=== PATIENT | male | born 1985 | race Caucasian/White ===

== ENCOUNTER 2017-02-11 21:52 | Emergency (ER) | payer MEDICAID ==
[~2017-02-11] VITALS: Ht 180.3 cm; Wt 95.3 kg
[~2017-02-11 21:52] MED LIST: /QUET10TA OR; PAXI20TA OR
[2017-02-11 22:20] VITALS: BP 136/97
[2017-02-11] MEDS ORDERED: BUPR150T5 PO (22:29)
[2017-02-11] MEDS ORDERED: BUPR10TASR PO (22:29)
[2017-02-11] MEDS ORDERED: REME15TA PO (22:29)
[2017-02-11] MEDS ORDERED: DULO30CA PO (22:29)
[2017-02-11] MEDS ORDERED: TRAZ50TA4 PO (22:29)
== END 2017-02-11 23:04 | disposition home or self-care (01) ==
LOC: EDBD 21:52 → M ED 23:01
DX: F19.10 Other psychoactive substance abuse, uncomplicated (principal); Z60.9 Problem related to social environment, unspecified; F32.9 Major depressive disorder, single episode, unspecified; F41.9 Anxiety disorder, unspecified; F17.200 Nicotine dependence, unspecified, uncomplicated; Z79.899 Other long term (current) drug therapy; Z88.0 Allergy status to penicillin

== ENCOUNTER → 2017-09-26 | Outpatient (CLI) | payer MEDICAID ==
[2017-09-26 13:32] LABS: HEMATOCRIT 45.5 % (42.0-52.0); HEMOGLOBIN 15.5 g/dl (14.0-18.0); MEAN CORPUSCULAR HEMOGLOBIN 30.1 pg (27.0-33.0); MEAN CORPUSCULAR HGB CONC 34.1 g/dl (32.0-36.5); MEAN CORPUSCULAR VOLUME 88.3 fl (80.0-96.0); PLATELET COUNT, AUTOMATED 330 10^3/uL (150-450); RED BLOOD COUNT 5.15 10^6/uL (4.30-6.10); WHITE BLOOD COUNT 8.7 10^3/uL (4.0-10.0)
[2017-09-26 15:09] LABS: ALBUMIN 4.4 GM/DL (3.2-5.2); ALBUMIN/GLOBULIN RATIO 1.26 (1.00-1.93); ALKALINE PHOSPHATASE 76 U/L (45-117); ALT/SGPT 40 U/L (12-78); ANION GAP 8 MEQ/L (8-16); AST/SGOT 24 U/L (7-37); BILIRUBIN,TOTAL 0.5 MG/DL (0.2-1.0); BLOOD UREA NITROGEN 11 MG/DL (7-18); CALCIUM LEVEL 9.6 MG/DL (8.5-10.1); CARBON DIOXIDE LEVEL 33 MEQ/L (21-32); CHLORIDE LEVEL 98 MEQ/L (98-107); CREATININE FOR GFR 0.88 MG/DL (0.70-1.30); GLOMERULAR FILTRATION RATE > 60.0 (>60); GLUCOSE, FASTING 72 MG/DL (70-105); POTASSIUM SERUM 3.9 MEQ/L (3.5-5.1); SODIUM LEVEL 139 MEQ/L (136-145); TOTAL PROTEIN 7.9 GM/DL (6.4-8.2)
[2017-09-26 15:20] LABS: HEPATITIS B SURFACE ANTIGEN NEGATIVE (NEGATIVE)
[2017-09-26 15:47] LABS: HEPATITIS C VIRUS ABY INDEX 0.1 INDEX (<0.8)
[2017-09-26 15:48] LABS: HIV 1&2 SCREEN CENTAUR NEGATIVE (NEGATIVE)
[2017-09-26 15:54] LABS: CHLAMYDIA DNA AMPLIFICATION NEGATIVE (NEGATIVE); GC DNA AMPLIFICATION NEGATIVE (NEGATIVE)
== END ==
LOC: M LAB 12:03
DX: F11.20 Opioid dependence, uncomplicated (principal)
CPT/HCPCS: 93005

== ENCOUNTER 2017-11-15 21:29 | Inpatient (IN) | payer MEDICAID ==
[2017-11-15] MEDS: HALOPERIDOL 5 MG/ML VIAL (J1630) IM (22:30)
[2017-11-15] MEDS: diphenhydrAMINE INJ 50MG/ML VIAL (J1200) IM (22:30)
[2017-11-15] MEDS: LORazepam 2 MG/ML VIAL (J2060) IM (22:30)
[2017-11-15] MEDS: NS 1,000 ML IV ×2 (22:30→23:41)
[2017-11-15 22:56] LABS: BASO # 0.1 10^3/uL (0.0-0.2); EOS # 0.1 10^3/uL (0.0-0.50); EOS % 0.7 % (0.0-3.0); HEMATOCRIT 44.8 % (42.0-52.0); HEMOGLOBIN 14.8 g/dl (14.0-18.0); IMMATURE GRANULOCYTE % 0.2 % (0-3.0); LYMPH # 1.5 10^3/uL (1.5-4.5); LYMPH % 17.8 % (24.0-44.0); MEAN CORPUSCULAR HEMOGLOBIN 30.6 pg (27.0-33.0); MEAN CORPUSCULAR VOLUME 92.6 fl (80.0-96.0); MONO # 0.5 10^3/uL (0.0-0.8); MONO % 6.1 % (0.0-5.0); NEUTROPHILS # 6.1 10^3/uL (1.8-7.7); NEUTROPHILS % 74.2 % (36.0-66.0); PLATELET COUNT, AUTOMATED 314 10^3/uL (150-450); RED BLOOD COUNT 4.84 10^6/uL (4.30-6.10); RED CELL DISTRIBUTION WIDTH 12.8 % (11.5-14.5); WHITE BLOOD COUNT 8.3 10^3/uL (4.0-10.0)
[2017-11-15 23:17] LABS: AMMONIA 50 uMOL/L (<32)
[2017-11-15 23:19] LABS: OSMOLALITY SERUM 295 MOSM/KG (275-295)
[2017-11-15 23:24] LABS: ALBUMIN 4.6 GM/DL (3.2-5.2); ALBUMIN/GLOBULIN RATIO 1.35 (1.00-1.93); ALKALINE PHOSPHATASE 63 U/L (45-117); ALT/SGPT 34 U/L (12-78); ANION GAP 7 MEQ/L (8-16); AST/SGOT 22 U/L (7-37); BILIRUBIN,DIRECT < 0.1 MG/DL (0.0-0.2); BILIRUBIN,TOTAL 0.2 MG/DL (0.2-1.0); BLOOD UREA NITROGEN 9 MG/DL (7-18); CALCIUM LEVEL 8.8 MG/DL (8.5-10.1); CARBON DIOXIDE LEVEL 28 MEQ/L (21-32); CHLORIDE LEVEL 106 MEQ/L (98-107); CPK CREATINE PHOSPHOKINASE 229 U/L (39-308); CREATININE FOR GFR 1.05 MG/DL (0.70-1.30); GLOMERULAR FILTRATION RATE > 60.0 (>60); GLUCOSE, FASTING 87 MG/DL (70-100); SALICYLATE LEVEL 3.3 MG/DL (5.0-30.0); SODIUM LEVEL 141 MEQ/L (136-145); TROPONIN I < 0.02 NG/ML (< 0.10)
[2017-11-15 23:25] LABS: ACETAMINOPHEN LEVEL < 2.0 UG/ML (10.0-30.0); ETHYL ALCOHOL (ETHANOL) < 0.003 % (0.000-0.010)
[2017-11-15 23:26] LABS: CK-MB VALUE MASS 2.6 NG/ML (0.0-3.6); MB/CK RELATIVE INDEX 1.13 (< OR =4)
[2017-11-15 23:27] LABS: LACTIC ACID SEPSIS PROTOCOL 3.9 MMOL/L (0.4-2.0)
[2017-11-15 23:32] LABS: THYROID STIMULATING HORMONE 0.414 uIU/ML (0.358-3.740)
[2017-11-15] MEDS: LORazepam 2 MG/ML VIAL (J2060) IV (23:45)
[2017-11-16 00:28] LABS: AMPHETAMINES LEVEL URINE NEGATIVE (NEGATIVE); BARBITURATES URINE NEGATIVE (NEGATIVE); BENZODIAZEPINES URINE NEGATIVE (NEGATIVE); CANNABINOIDS URINE NEGATIVE (NEGATIVE); COCAINE METABOLITE URINE NEGATIVE (NEGATIVE); METHADONE URINE NEGATIVE (NEGATIVE); OPIATES URINE NEGATIVE (NEGATIVE); PHENCYCLIDINE URINE NEGATIVE (NEGATIVE)
[2017-11-16 03:35] LABS: INR 1.01; PROTHROMBIN TIME 13.4 SECONDS (12.4-14.5)
[2017-11-16 03:45] LABS: AMMONIA 40 uMOL/L (<32)
[2017-11-16] MEDS ORDERED: LORazepam 2 MG/ML VIAL (J2060) IV (12:45)
[2017-11-16] MEDS: LR 1,000 ML IV ×2 (13:32→23:53)
[2017-11-16 13:36] LABS: TROPONIN I < 0.02 NG/ML (< 0.10)
[2017-11-16 13:47] LABS: CK-MB VALUE MASS 2.5 NG/ML (0.0-3.6); CPK CREATINE PHOSPHOKINASE 1595 U/L (39-308); MB/CK RELATIVE INDEX 0.15 (< OR =4)
[2017-11-16 19:35] LABS: TROPONIN I < 0.02 NG/ML (< 0.10)
[2017-11-16 19:46] LABS: CPK CREATINE PHOSPHOKINASE 1390 U/L (39-308); MB/CK RELATIVE INDEX 0.14 (< OR =4)
[2017-11-16] MEDS: HEPARIN SOD (PORCINE) 5000 UNITS/ML VIAL SC (21:30)
[2017-11-17] MEDS: LR 1,000 ML IV ×3 (06:18→19:24)
[2017-11-17 06:29] LABS: HEMATOCRIT 41.2 % (42.0-52.0); HEMOGLOBIN 13.4 g/dl (14.0-18.0); MEAN CORPUSCULAR HEMOGLOBIN 30.2 pg (27.0-33.0); MEAN CORPUSCULAR HGB CONC 32.5 g/dl (32.0-36.5); PLATELET COUNT, AUTOMATED 250 10^3/uL (150-450); RED BLOOD COUNT 4.43 10^6/uL (4.30-6.10); RED CELL DISTRIBUTION WIDTH 12.9 % (11.5-14.5); WHITE BLOOD COUNT 5.6 10^3/uL (4.0-10.0)
[2017-11-17 06:50] LABS: AMMONIA 25 uMOL/L (<32)
[2017-11-17 06:53] LABS: ALBUMIN 3.3 GM/DL (3.2-5.2); ALBUMIN/GLOBULIN RATIO 1.14 (1.00-1.93); ALKALINE PHOSPHATASE 53 U/L (45-117); ALT/SGPT 26 U/L (12-78); ANION GAP 4 MEQ/L (8-16); AST/SGOT 24 U/L (7-37); BILIRUBIN,TOTAL 0.2 MG/DL (0.2-1.0); BLOOD UREA NITROGEN 9 MG/DL (7-18); CALCIUM LEVEL 8.6 MG/DL (8.5-10.1); CARBON DIOXIDE LEVEL 32 MEQ/L (21-32); CHLORIDE LEVEL 109 MEQ/L (98-107); CREATININE FOR GFR 0.73 MG/DL (0.70-1.30); GLOMERULAR FILTRATION RATE > 60.0 (>60); GLUCOSE, FASTING 96 MG/DL (70-100); MAGNESIUM LEVEL 2.1 MG/DL (1.8-2.4); SODIUM LEVEL 145 MEQ/L (136-145); TOTAL PROTEIN 6.2 GM/DL (6.4-8.2)
[2017-11-17 07:47] LABS: CPK CREATINE PHOSPHOKINASE 995 U/L (39-308)
[2017-11-17] MEDS: HEPARIN SOD (PORCINE) 5000 UNITS/ML VIAL SC ×2 (08:47→20:33)
[2017-11-18] MEDS: LR 1,000 ML IV ×2 (01:47→05:44)
[2017-11-18 07:00] LABS: HEMATOCRIT 40.4 % (42.0-52.0); HEMOGLOBIN 13.3 g/dl (14.0-18.0); MEAN CORPUSCULAR HGB CONC 32.9 g/dl (32.0-36.5); MEAN CORPUSCULAR VOLUME 91.2 fl (80.0-96.0); PLATELET COUNT, AUTOMATED 259 10^3/uL (150-450); RED BLOOD COUNT 4.43 10^6/uL (4.30-6.10); RED CELL DISTRIBUTION WIDTH 12.7 % (11.5-14.5); WHITE BLOOD COUNT 7.1 10^3/uL (4.0-10.0)
[2017-11-18 07:20] LABS: ALBUMIN 3.2 GM/DL (3.2-5.2); ALBUMIN/GLOBULIN RATIO 1.07 (1.00-1.93); ALKALINE PHOSPHATASE 54 U/L (45-117); ALT/SGPT 23 U/L (12-78); ANION GAP 5 MEQ/L (8-16); AST/SGOT 17 U/L (7-37); BILIRUBIN,TOTAL 0.3 MG/DL (0.2-1.0); BLOOD UREA NITROGEN 9 MG/DL (7-18); CALCIUM LEVEL 8.6 MG/DL (8.5-10.1); CARBON DIOXIDE LEVEL 30 MEQ/L (21-32); CHLORIDE LEVEL 107 MEQ/L (98-107); CREATININE FOR GFR 0.69 MG/DL (0.70-1.30); GLOMERULAR FILTRATION RATE > 60.0 (>60); GLUCOSE, FASTING 96 MG/DL (70-100); POTASSIUM SERUM 3.4 MEQ/L (3.5-5.1); SODIUM LEVEL 142 MEQ/L (136-145); TOTAL PROTEIN 6.2 GM/DL (6.4-8.2)
[2017-11-18] MEDS: HEPARIN SOD (PORCINE) 5000 UNITS/ML VIAL SC (08:25)
[2017-11-18] MEDS: POTASSIUM CHLORIDE 10 MEQ SR TABLET PO (08:25)
== END 2017-11-18 13:47 | disposition home or self-care (01) | DRG 351 ==
LOC: M MSPAV 11-17 15:23 → M ED INP 11-16 12:55 → M ED 21:29
DX: M62.82 Rhabdomyolysis (principal); F32.9 Major depressive disorder, single episode, unspecified; E78.2 Mixed hyperlipidemia; F41.9 Anxiety disorder, unspecified; F11.10 Opioid abuse, uncomplicated; R41.82 Altered mental status, unspecified; F17.210 Nicotine dependence, cigarettes, uncomplicated; Z79.899 Other long term (current) drug therapy

== ENCOUNTER 2018-04-18 13:39 | Emergency (ER) | payer MEDICAID ==
[2018-04-18] MEDS: GENTAMICIN 0.3% OPHTH SOL 5 ML BTL OS (14:34)
== END 2018-04-18 14:37 | disposition home or self-care (01) ==
LOC: M ED 13:39
DX: H10.9 Unspecified conjunctivitis (principal); I10 Essential (primary) hypertension; F43.10 Post-traumatic stress disorder, unspecified; F41.9 Anxiety disorder, unspecified; F32.9 Major depressive disorder, single episode, unspecified; Z87.820 Personal history of traumatic brain injury; Z72.0 Tobacco use; Z79.899 Other long term (current) drug therapy; Z88.0 Allergy status to penicillin
CPT/HCPCS: 99282

== ENCOUNTER 2018-05-17 08:46 | Emergency (ER) | payer MEDICAID ==
[2018-05-17] MEDS: IBUPROFEN 600 MG TAB PO (09:43)
[2018-05-17] MEDS: DICYCLOMINE 10 MG CAP PO (09:45)
== END 2018-05-17 09:49 | disposition home or self-care (01) ==
LOC: M ED 08:46
DX: S20.369A Insect bite (nonvenomous) of unspecified front wall of thorax, initial encounter (principal); W57.XXXA Bitten or stung by nonvenomous insect and other nonvenomous arthropods, initial encounter; Y92.89 Other specified places as the place of occurrence of the external cause; R10.9 Unspecified abdominal pain; I10 Essential (primary) hypertension; F41.9 Anxiety disorder, unspecified; F33.9 Major depressive disorder, recurrent, unspecified; F43.10 Post-traumatic stress disorder, unspecified; F17.200 Nicotine dependence, unspecified, uncomplicated; Z88.0 Allergy status to penicillin
CPT/HCPCS: 99282

== ENCOUNTER → 2020-02-25 | Outpatient (REF) | payer OTHER ==
[~2020-02-25] MED LIST changes: -/QUET10TA OR; +ALLE10TA12 PO; +BUPR10TASR PO; +BUPR150T5 PO; +BUPR300T92 PO; +DOXY-350 PO; +DULO30CA9 PO; +FIBE62TA PO; +GENT0.3S36 OD; +HYDR-3715 PO; +KETO10TAB PO; +MELA3TAB63 PO; +NAPR-837 PO; +NEUR300C PO; +PATIENT COMMENT; +REME15TA PO; +SERO1TAB OR; +SUBO12MI SL; +TRAZ-252 PO
== END ==
LOC: M LAB REF 12:24
PROVIDERS: ATTEND Surgery
DX: Z11.59 Encounter for screening for other viral diseases (principal)

== ENCOUNTER 2020-09-18 19:23 | Emergency (ER) | payer OTHER, SELFPAY ==
[~2020-09-18 19:23] MED LIST changes: -MELA3TAB63 PO; +MELA3TAB70 PO; +MIRT-62 PO; -REME15TA PO
[2020-09-18 19:47] VITALS: BP 155/99
== END 2020-09-18 19:55 | disposition left against medical advice (07) ==
LOC: M ED 19:23
DX: Z53.21 Procedure and treatment not carried out due to patient leaving prior to being seen by health care provider (principal)

== ENCOUNTER 2020-09-28 14:58 | Emergency (ER) | payer OTHER ==
[~2020-09-28] VITALS: Ht 180.3 cm; Wt 79.3 kg
[2020-09-28 14:59] VITALS: BP 141/88
[2020-09-28] MEDS ORDERED: IBUP80TA PO (15:09)
[2020-09-28] MEDS ORDERED: GABA-1171 PO (15:09)
[2020-09-28] MEDS ORDERED: CLEO300C2 PO (16:21)
== END 2020-09-28 16:28 | disposition home or self-care (01) ==
LOC: M ED 14:58
DX: I80.8 Phlebitis and thrombophlebitis of other sites (principal); L03.90 Cellulitis, unspecified; W57.XXXA Bitten or stung by nonvenomous insect and other nonvenomous arthropods, initial encounter; F17.200 Nicotine dependence, unspecified, uncomplicated; F11.10 Opioid abuse, uncomplicated; Z88.0 Allergy status to penicillin

== ENCOUNTER 2020-10-16 18:17 | Emergency (ER) | payer OTHER ==
[~2020-10-16] VITALS: Ht 182.9 cm; Wt 76.0 kg
[~2020-10-16 18:17] MED LIST changes: +CLEO300C2 PO; +GABA-1171 PO; +IBUP80TA PO
[2020-10-16] MEDS ORDERED: DOXY100T27 (18:27)
[2020-10-16] MEDS ORDERED: LIDOCAINE 4% CREAM 5GM (LMX4) TOP ONE (19:30)
[2020-10-16] MEDS ORDERED: DOXYCYCLINE HYCLATE 100MG TABLET PO ONE (19:30)
[2020-10-16] MEDS ORDERED: NAPROXEN 250 MG TAB PO ONE (19:30)
--- OUTSIDE RECORDS SUMMARY | 2020-10-16 19:33 | CCD ---
Author Author [facility] Organization [facility] Address Unknown Phone Unavailable Support Name Relationship Address Phone Jeniffer Florez Next Of Kin Unknown Unavailable Navneet RUIZ, Solitario Next Of Kin [address] [place] [address] Osiel RUIZ, Placido Next Of Kin [address] [place] [address] Syd RUIZ, Teri Next Of Kin [address] [place], [place] [id number] [facility] [place] [place] [address] RAISSA FLOREZ Next Of Kin [address] [place] [address] Pedro Luis RPA-C, Irma Next Of Kin [address] [place] [address] Maday SWIMMING POOL SERVICER, Susana Next Of Kin [address] [place] [address] Yvan BATES, Jamel Next Of Kin [address] [place] [address] Eddie ANP-BC, Татьяна Next Of Kin [address] [place] [id number] [facility] Next Of Kin [address] [place] [address] UE Next Of Kin Unknown Unavailable NONE, PATIENT PER Next Of Kin - -, [place] - - JENIFFER [place] [address] UNEMPLOYED Next Of Kin Unknown JOSE FLOREZ Next Of Kin [address] [place], [place] [id number] GEMMA RICHARD Next Of Kin [address] [place] [address] TREMAYNE RICHARD Next Of Kin [address] [place] [address] TREMAYNE RICHARD Next Of Kin [address] [place] [address] NOAH FLOREZ Next Of Kin [address] [place] [address] Care Team Providers Care Mold Closer Name Role Phone Kathleen Patiño MD Unavailable Unavailable Kathleen Patiño MD Unavailable Unavailable Kathleen Patiño MD Unavailable Unavailable Kathleen Patiño MD Unavailable Unavailable Kathleen Patiño MD Unavailable Unavailable Kathleen Patiño MD Unavailable Unavailable Haroon, Kathleen Jerez MD Unavailable Unavailable Kathleen Patiño MD Unavailable Unavailable Haroon, Kathleen Jerez MD Unavailable Unavailable Kathleen Patiño MD Unavailable Unavailable Kathleen Patiño MD Unavailable Unavailable Kathleen Patiño MD Unavailable Unavailable Kathleen Patiño MD Unavailable Unavailable Kathleen Patiño MD Unavailable Unavailable Kathleen Patiño MD Unavailable Unavailable Kathleen Patiño MD Unavailable Unavailable Kathleen Patiño MD Unavailable Unavailable Kathleen Patiño MD Unavailable Unavailable Kathleen Patiño MD Unavailable Unavailable Kathleen Patiño MD Unavailable Unavailable Kathleen Patiño MD Unavailable Unavailable Kathleen Patiño MD Unavailable Unavailable Kathleen Patiño MD Unavailable Unavailable Kathleen Patiño MD Unavailable Unavailable Kathleen Patiño MD Unavailable Unavailable Kathleen Patiño MD Unavailable Unavailable Kathleen Patiño MD Unavailable Unavailable Kathleen Patiño MD Unavailable Unavailable Kathleen Patiño MD Unavailable Unavailable Kathleen Patiño MD Unavailable Unavailable Kathleen Patiño MD Unavailable Unavailable Kathleen Patiño MD Unavailable Unavailable Kathleen Patiño MD Unavailable Unavailable Kathleen Patiño MD Unavailable Unavailable Kathleen Patiño MD Unavailable Unavailable Kathleen Patiño MD Unavailable Unavailable Michelet Cartagena MD Unavailable Unavailable Michelet Cartagena MD Unavailable Unavailable Michelet Cartagena MD Unavailable Unavailable Michelet Cartagena MD Unavailable Unavailable Michelet Cartagena MD Unavailable Unavailable Michelet Cartagena MD Unavailable Unavailable Michelet Cartagena MD Unavailable Unavailable Michelet Cartagena MD Unavailable Unavailable Michelet Cartagena MD Unavailable Unavailable Michelet Cartagena MD Unavailable Unavailable Michelet Cartagena MD Unavailable Unavailable Michelet Cartagena MD Unavailable Unavailable Michelet Cartagena MD Unavailable Unavailable Michelet Cartagena MD Unavailable Unavailable Michelet Cartagena MD Unavailable Unavailable Michelet Cartagena MD Unavailable Unavailable Michelet Cartagena MD Unavailable Unavailable Michelet Cartagena MD Unavailable Unavailable Michelet Cartagena MD Unavailable Unavailable Michelet Cartagena MD Unavailable Unavailable Michelet Cartagena MD Unavailable Unavailable Michelet Cartagena MD Unavailable Unavailable Michelet Cartagena MD Unavailable Unavailable Michelet Cartagena MD Unavailable Unavailable Michelet Cartagena MD Unavailable Unavailable Michelet Cartagena MD Unavailable Unavailable Michelet Cartagena MD Unavailable Unavailable Michelet Cartagena MD Unavailable Unavailable Michelet Cartagena MD Unavailable Unavailable Michelet Cartagena MD Unavailable Unavailable Michelet Cartagena MD Unavailable Unavailable Michelet Cartagena MD Unavailable Unavailable Michelet Cartagena MD Unavailable Unavailable Michelet Cartagena MD Unavailable Unavailable Michelet Cartagena MD Unavailable Unavailable Michelet Cartagena MD Unavailable Unavailable Michelet Cartagena MD Unavailable Unavailable Michelet Cartagena MD Unavailable Unavailable Michelet Cartagena MD Unavailable Unavailable Michelet Cartagena MD Unavailable Unavailable Michelet Cartagena MD Unavailable Unavailable Michelet Cartagena MD Unavailable Unavailable Michelet Cartagena MD Unavailable Unavailable Michelet Cartagena MD Unavailable Unavailable Michelet Cartagena MD Unavailable Unavailable Michelet Cartagena MD Unavailable Unavailable Michelet Cartagena MD Unavailable Unavailable Michelet Cartagena MD Unavailable Unavailable Michelet Cartagena MD Unavailable Unavailable Michelet Cartagena MD Unavailable Unavailable Michelet Cartagena MD Unavailable Unavailable Michelet Cartagena MD Unavailable Unavailable Michelet Cartagena MD Unavailable Unavailable Michelet Cartagena MD Unavailable Unavailable Michelet Cartagena MD Unavailable Unavailable Michelet Cartagena MD Unavailable Unavailable Michelet Cartagena MD Unavailable Unavailable Michelet Cartagena MD Unavailable Unavailable Michelet Cartagena MD Unavailable Unavailable Michelet Cartagena MD Unavailable Unavailable Michelet Cartagena MD Unavailable Unavailable Michelet Cartagena MD Unavailable Unavailable Michelet Cartagena MD Unavailable Unavailable Michelet Cartagena MD Unavailable Unavailable Michelet Cartagena MD Unavailable Unavailable Michelet Cartagena MD Unavailable Unavailable Michelet Cartagena MD Unavailable Unavailable Michelet Cartagena MD Unavailable Unavailable Michelet Cartagena MD Unavailable Unavailable Michelet Cartagena MD Unavailable Unavailable Michelet Cartagena MD Unavailable Unavailable Michelet Cartagena MD Unavailable Unavailable Michelet Cartagena MD Unavailable Unavailable Michelet Cartagena MD Unavailable Unavailable Michelet Cartagena MD Unavailable Unavailable Michelet Cartagena MD Unavailable Unavailable Michelet Cartagena MD Unavailable Unavailable Michelet Cartagena MD Unavailable Unavailable Michelet Cartagena MD Unavailable Unavailable Michelet Cartagena MD Unavailable Unavailable Michelet Cartagena MD Unavailable Unavailable Michelet Cartagena MD Unavailable Unavailable Michelet Cartagena MD Unavailable Unavailable Michelet Cartagena MD Unavailable Unavailable Michelet Cartagena MD Unavailable Unavailable Michelet Cartagena MD Unavailable Unavailable Michelet Cartagena MD Unavailable Unavailable Michelet Cartagena MD Unavailable Unavailable Michelet Cartagena MD Unavailable Unavailable Nicole LOO MD Unavailable Unavailable Nicole LOO MD Unavailable Unavailable Nicole LOO MD Unavailable Unavailable Nicole LOO MD Unavailable Unavailable Nicole LOO MD Unavailable Unavailable Nicole LOO MD Unavailable Unavailable Nicole LOO MD Unavailable Unavailable Nicole LOO MD Unavailable Unavailable Nicole LOO MD Unavailable Unavailable Nicole LOO MD Unavailable Unavailable Nicole LOO MD Unavailable Unavailable Nicole LOO MD Unavailable Unavailable Nicole LOO MD Unavailable Unavailable Nicole LOO MD Unavailable Unavailable Nicole LOO MD Unavailable Unavailable Nicole LOO MD Unavailable Unavailable Nicole LOO MD Unavailable Unavailable Nicole LOO MD Unavailable Unavailable Nicole LOO MD Unavailable Unavailable Nicole LOO MD Unavailable Unavailable Nicole LOO MD Unavailable Unavailable Nicole LOO MD Unavailable Unavailable Nicole LOO MD Unavailable Unavailable Nicole LOO MD Unavailable Unavailable Nicole LOO MD Unavailable Unavailable Nicole LOO MD Unavailable Unavailable Nicole LOO MD Unavailable Unavailable Nicole LOO MD Unavailable Unavailable Nicole LOO MD Unavailable Unavailable Nicole LOO MD Unavailable Unavailable Nicole LOO MD Unavailable Unavailable Nicole LOO MD Unavailable Unavailable Nicole LOO MD Unavailable Unavailable Nicole LOO MD Unavailable Unavailable Nicole LOO MD Unavailable Unavailable Nicole LOO MD Unavailable Unavailable Nicole LOO MD Unavailable Unavailable Nicole LOO MD Unavailable Unavailable Nicole LOO MD Unavailable Unavailable Nicole LOO MD Unavailable Unavailable Nicole LOO MD Unavailable Unavailable Nicole LOO MD Unavailable Unavailable Nicole LOO MD Unavailable Unavailable Nicole LOO MD Unavailable Unavailable Nicole LOO MD Unavailable Unavailable Nicole LOO MD Unavailable Unavailable Nicole LOO MD Unavailable Unavailable Nicole LOO MD Unavailable Unavailable Nicole LOO MD Unavailable Unavailable Nicole LOO MD Unavailable Unavailable Nicole LOO MD Unavailable Unavailable Nicole LOO MD Unavailable Unavailable Nicole LOO MD Unavailable Unavailable Nicole LOO MD Unavailable Unavailable Nicole LOO MD Unavailable Unavailable NAVNEET, Nicole JEREZ MD Unavailable Unavailable NAVNEET, Nicole JEREZ MD Unavailable Unavailable NAVNEET, Nicole JEREZ MD Unavailable Unavailable NAVNEET, T SOLITARIO RUIZ Unavailable Unavailable NAVNEET, T SOLITARIO RUIZ Unavailable Unavailable NAVNEET, T SOLITARIO RUIZ Unavailable Unavailable NAVNEET, Nicole JEREZ MD Unavailable Unavailable NAVNEET, Nicole JEREZ MD Unavailable Unavailable NAVNEET, Nicole JEREZ MD Unavailable Unavailable NAVNEET, Nicole JEREZ MD Unavailable Unavailable NAVNEET, Nicole JEREZ MD Unavailable Unavailable NAVNEET, Nicole JEREZ MD Unavailable Unavailable NAVNEET, T SOLITARIO RUIZ Unavailable Unavailable NAVNEET, T SOLITARIO RUIZ Unavailable Unavailable NAVNEET, T SOLITARIO RUIZ Unavailable Unavailable NAVNEET, T SOLITARIO RUIZ Unavailable Unavailable NAVNEET, T SOLITARIO RUIZ Unavailable Unavailable NAVNEET, T SOLITARIO RUIZ Unavailable Unavailable NAVNEET, T SOLITARIO RUIZ Unavailable Unavailable NAVNEET, T SOLITARIO RUIZ Unavailable Unavailable NAVNEET, T SOLITARIO RUIZ Unavailable Unavailable NAVNEET, T SOLITARIO RUIZ Unavailable Unavailable NAVNEET, Nicole JEREZ MD Unavailable Unavailable NAVNEET, T SOLITARIO RUIZ Unavailable Unavailable NAVNEET, T SOLITARIO RUIZ Unavailable Unavailable NAVNEET, T SOLITARIO RUIZ Unavailable Unavailable NAVNEET, T SOLITARIO RUIZ Unavailable Unavailable NAVNEET, T SOLITARIO RUIZ Unavailable Unavailable Adela Monge Unavailable Re-disclosure Warning The records that you are about to access may contain information from federally-assisted alcohol or drug abuse programs. If such information is present, then the following federally mandated warning applies: This information has been disclosed to you from records protected by federal confidentiality rules (42 CFR part 2). The federal rules prohibit you from making any further disclosure of this information unless further disclosure is expressly permitted by the written consent of the person to whom it pertains or as otherwise permitted by 42 CFR part 2. A general authorization for the release of medical or other information is NOT sufficient for this purpose. The Federal rules restrict any use of the information to criminally investigate or prosecute any alcohol or drug abuse patient.The records that you are about to access may contain highly sensitive health information, the redisclosure of which is protected by Article 27-F of the [facility] Public Health law. If you continue you may have access to information: Regarding HIV / AIDS; Provided by facilities licensed or operated by the [facility] Office of Mental Health; or Provided by the [facility] Office for People With Developmental Disabilities. If such information is present, then the following [facility] mandated warning applies: This information has been disclosed to you from confidential records which are protected by state law. State law prohibits you from making any further disclosure of this information without the specific written consent of the person to whom it pertains, or as otherwise permitted by law. Any unauthorized further disclosure in violation of state law may result in a fine or fdc sentence or both. A general authorization for the release of medical or other information is NOT sufficient authorization for further disc losure. Family History Family Member Name Family Member Gender Family Member Status Date o f Status Description Data Source(s) Unknown Male Problem [facility] ([facility]) Encounters Encounter Providers Location Date Indications Data Source(s ) Outpatient Attender: Placido Cartagena MD 06/02/2020 04:31:01 PM EDT [facility] Outpatient Attender: Placido Cartagena MD 06/02/2020 04:30:00 PM EDT [facility] Outpatient Attender: Placido Cartagena MD 05/08/2020 12:02:07 AM EDT [facility] Outpatient Attender: Placido Cartagena MD 05/07/2020 01:59:00 PM EDT [facility] Outpatient Attender: Placido Cartagena MD 05/04/2020 03:27:00 PM EDT [facility] Outpatient Attender: Placido Cartagena MD 05/04/2020 03:26:01 PM EDT [facility] Outpatient Attender: Placido Cartagena MD 05/04/2020 12:02:11 AM EDT [facility] Outpatient Attender: Placido Cartagena MD 05/03/2020 01:44:01 PM EDT [facility] Outpatient Attender: Placido Cartagena MD 05/03/2020 01:43:02 PM EDT [facility] Outpatient Attender: Placido Cartagena MD 05/03/2020 12:03:00 PM EDT [facility] Outpatient Attender: Placido Cartagena MD 05/03/2020 11:59:00 AM EDT [facility] Outpatient Attender: Placido Cartagena MD 05/03/2020 11:55:00 AM EDT [facility] Outpatient Attender: Placido Cartagena MD 05/03/2020 11:54:01 AM EDT [facility] Outpatient Attender: Placido Cartagena MD 05/03/2020 11:53:01 AM EDT [facility] Outpatient Attender: Placido Cartagena MD 05/03/2020 11:49:01 AM EDT [facility] Outpatient Attender: Placido Cartagena MD 05/03/2020 11:39:01 AM EDT [facility] Outpatient Attender: Placido Cartagena MD 05/03/2020 10:52:00 AM EDT [facility] Outpatient Attender: SOLITARIO LOO MD 05/03/2020 10:50:00 A M EDT [facility] Outpatient Attender: SOLITARIO LOO MD 04/12/2020 11:52:01 A M EDT [facility] Outpatient Attender: SOLITARIO LOO MD 04/12/2020 11:20:01 A M EDT [facility] Outpatient Attender: SOLITARIO LOO MD 04/12/2020 11:14:00 A M EDT [facility] Outpatient Attender: SOLITARIO LOO MD 04/12/2020 10:54:00 A M EDT [facility] Outpatient Attender: Solitario Patiño MD [facility] 03/03 03:44:00 PM EDT [id number] [facility] [id number] Attender: Adela Monge 01/23/2020 12:00:00 AM E DT [facility] ([facility]) Brief Individual Psychotherapy - 20 min Attender: Adela arreola [facility] 01/22/2020 01:30:00 AM EDT - 01/22/2020 01:30:00 AM EDT [facility] ([facility]) Outpatient Attender: SOLITARIO LOO MD 12/23/2019 09:01:02 P M EDT [facility] Attender: Adela Monge 10/27/2019 12:00:[address] [facility] ([facility]) Brief Individual Psychotherapy - 30 min Attender: Adela arreola [facility] 10/23/2019 09:15:00 AM EST - 10/23/2019 09:15:00 AM EST [facility] ([facility]) Medications Medication Brand Name Start Date Product Form Dose Route Admi nistrative Instructions Pharmacy Instructions Status Indications Reaction Description Data Source(s) 100 mg 10/08/2020 12:00:00 AM EST tablet 14 TAKE ONE TABLET BY MOUTH TWICE A DAY FOR 7 DAYS TAKE ONE TABLET BY MOUTH TWICE A DAY FOR 7 DAYS SOLD: 2020 [facility] 300 mg 09/28/2020 12:00:00 AM EST capsule 30 TAKE ONE CAPSULE BY MOUTH THREE TIMES A DAY TAKE ONE CAPSULE BY MOUTH THREE TIMES A DAY SOLD: 10/01/2020 [facility] 100 mg 08/03/2020 12:00:00 AM EST capsule 60 TAKE ONE CAPSULE BY MOUTH TWO TIMES A DAY TAKE ONE CAPSULE BY MOUTH TWO TIMES A DAY SOLD: 08/03/2020 [facility] 0.1 % 06/03/2020 12:00:00 AM EDT cream 15 APPLY TO AFFECTED AREA(S) TWO TIMES A DAY APPLY TO AFFECTED AREA(S) TWO TIMES A DAY SOLD: 08/03/2020 [facility] 50 mcg/actuation 06/03/2020 12:00:00 AM EDT spray,suspension 16 SPRAY 2 SPRAYS INTRANASALLY ONCE DAILY DIRECTED SPRAY 2 SPRAYS INTRANASALLY ONCE DAILY DIRECTED SOLD: 06/06/2020 [facility] 800 mg 06/03/2020 12:00:00 AM EDT tablet 21 TAKE ONE TABLET BY MOUTH THREE TIMES A DAY FOR 7 DAYS TAKE ONE TABLET BY MOUTH THREE TIMES A DAY FOR 7 DAYS SOLD: 06/06/2020 [facility] 0.1 % 06/03/2020 12:00:00 AM EDT cream 15 APPLY TO AFFECTED AREA(S) TWO TIMES A DAY APPLY TO AFFECTED AREA(S) TWO TIMES A DAY SOLD: 06/03/2020 [facility] 10 mg 06/03/2020 12:00:00 AM EDT tablet 30 TAKE ONE TABLET BY MOUTH EVERY DAY TAKE ONE TABLET BY MOUTH EVERY DAY SOLD: 06/03/2020 [facility] 200 mg 06/03/2020 12:00:00 AM EDT capsule 21 TAKE ONE CAPSULE BY MOUTH THREE TIMES A DAY FOR 7 DAYS TAKE ONE CAPSULE BY MOUTH THREE TIMES A DAY FOR 7 DAYS SOLD: 06/03/2020 [facility] 300 mg 06/03/2020 12:00:00 AM EDT capsule 20 TAKE ONE CAPSULE BY MOUTH EVERY 12 HOURS FOR 10 DAYS TAKE ONE CAPSULE BY MOUTH EVERY 12 HOURS FOR 10 DAYS S OLD: 06/03/2020 [facility] 100 mg 05/04/2020 12:00:00 AM EDT capsule 60 TAKE ONE CAPSULE BY MOUTH EVERY DAY FOR 7 DAYS THEN 1 CAPSULE TWO TIMES A DAY TAKE ONE CAPSULE BY MOUTH EVERY DAY FOR 7 DAYS THEN 1 CAPSULE TWO TIMES A DAY SOLD: 05/04/2020 [facility] 100 mg 05/04/2020 12:00:00 AM EDT capsule 60 TAKE ONE CAPSULE BY MOUTH EVERY DAY FOR 7 DAYS THEN 1 CAPSULE TWO TIMES A DAY TAKE ONE CAPSULE BY MOUTH EVERY DAY FOR 7 DAYS THEN 1 CAPSULE TWO TIMES A DAY SOLD: 06/01/2020 [facility] Insurance Providers Payer name Policy type / Coverage type Policy ID Covered democrat ID Covered democrat's relationship to duran Policy Duran Plan Information UN COMMUNITY PLAN MCDHMO [id number] SP [id number] [facility] [employer] MCDHMO [id number] SP [id number] SELF PAY ONLY [id number] SP [id number] YURY RICEIFF DEPT [id number] SP [id number] Medicaid P [id number] S [id number] Managed Care [facility] Community Plan P [id number] S [id number] Medicaid S [id number] S [id number] Managed Care - Community Plan [facility] P [id number] S [id number] UN COMMUNITY PLAN MCDHMO [id number] SP [id number] [facility] COMM[employer]ITY [employer] MCDHMO [id number] SP [id number] [facility] COMMUNITY PLAN MCDHMO [id number] SP [id number] Self Pay P [id number] S [id number] Self Pay P UNAVAILABLE S UNAVAILA BLE MEDICAID [id number] SP [id number] Medicaid P [id number] S [id number] Medicaid [place] [id number] Self [id number] MEDICAID M [id number] S [id number] Medicaid P [id number] S [id number] MEDICAID -PHYSICIAN [id number] MEDICAID - O/P EMERGENCY ROOM [id number] Medicaid P [id number] S [id number] MEDICAID [id number] Lisa [id number] [facility] [id number] SP [id number] Managed Care - Community Plan [facility] P [id number] S [id number] Managed Care - Community Plan [facility] P [id number] S [id number] Managed Care BCBS O [id number] S [id number] Medicaid S [id number] S [id number] Medicaid S UNAVAILABLE S UNAVAILA BLE EXCELLUS BCBS P [id number] C [id number] EXCELLUS BCBS P UNAVAILABLE C UNAV AILABLE [id number] Problems, Conditions, and Diagnoses Code Display Name Description Problem Type Effective Dates Data Source(s) F41.9 Anxiety disorder, unspecified Unspecified Anxiety Diso rder Condition 01/23/2020 12:00:00 AM EDT [facility] ([facility]) F11.20 Opioid dependence, uncomplicated Opioid Use Disorder, Severe Condition 01/23/2020 12:00:00 AM EDT [facility] ([facility]) Surgeries/Procedures Procedure Description Date Indications Data Source(s) Brief Individual Psychotherapy - 20 min 01/23/2020 12:00:00 AM EDT - 01/23/2020 12:00:00 AM EDT [facility] ([facility]) Brief Individual Psychotherapy - 20 min 01/22/2020 12: 00:00 AM EDT [facility] ([facility]) Brief Individual Psychotherapy - 30 min 10/27/2019 12:00:00 AM EST - 10/27/2019 12:00:00 AM EST [facility] ([facility]) Brief Individual Psychotherapy - 30 min 10/23/2019 12: 00:00 AM EST [facility] ([facility]) Results ID Date Data Source [id number] 05/03/2020 11:16:16 AM EDT [facility] Measurements & CalculationsHeight: 71 inches (5 ft. 11 in.) 180.34 cm Weight: 194 pounds 88.18 kg Body Mass Index (BMI): 27.16BMI Interpretation: OverweightBody Surface Area (BSA): 2.08Weight Management Education Done (Nutrition/Physical Activity)Vital SignsTemperature: 97.7FPulse Rate: 85 beats/minuteRespiratory Rate: 16 respirations/minuteBlood Pressure: 109/76 O2 Saturation: 100% Vital Signs performed by: Shanelle Narvaez MA, May 03, 2020 11:22 AMNurses Note pt was just [facility] year Initial Intake Information From: patientRoom #: 13Infectious Disease / Travel ScreeningRecent travel for you or any close contacts? NoHave you had any close contact with anyone diagnosed with or under investigation for COVID-19 (coronavirus)? NoFever? NoRespiratory symptoms: cough, cold, congestion, shortness of breath, difficulty breathing? NoLoss of smell? NoLoss of taste? NoSmoking, Tobacco, Vaping or Smoke Exposure StatusSmoke Status: current every day smokerTobacco Use: YesAdv to Quit: YesDo you vape? NoHealthcare HistorySince your last office visit...Have you been admitted to the hospital? NoHave you been to an emergency room (ER) or urgent care clinic? NoHave you seen another healthcare provider? Yes - [facility]Have you seen a dentist? Yes - [facility] dentalIntake performed by: Shanelle Narvaez MA, May 03, 2020 11:18 AMRate Your HealthIn general, would you say your health is? PoorPain AssessmentAre you currently having any pain which... You would like your provider to address? No Affects your activity level? NoDepression Screening - PHQ-2Over the last two weeks, have you... Had little interest or pleasure in doing things? Not at all Been feeling down, depressed, or hopeless? Not at all PHQ-2 Score: 0Anxiety Screening - SYD-2Over the last two weeks, have you been... Feeling nervous, anxious, or on edge? Not at all Unable to stop or control worrying? Not at all SYD-2 Score: 0PRAPARE Sociodemographic Characteristics Race: White Ethnicity: Not or Preferred Language: EnglishScreening, Brief Intervention, & Referral to Treatment (SBIRT)Pre-Screening Questions How many times have you have 5 or more drinks in a day? 0How many times have you used an illegal drug or used a prescription medication for a non-medical reason? 0Performed by: Shanelle Narvaez MA, May 03, 2020 11:18 AMPatient History Medical History:Anxiety DisorderHypertensionSubstance abusetbiSurgical History:L EYE CONSTRUCTION 2002Family History:FH DiabetesFH HypertensionDiabetes (Father)Social/Personal History:Smoking History:Patient currently smokes every day.Patient has been counseled to quit. Advised to Quit/Tobacco Education: YesChief Complaintannual examHistory of Present Illness (HPI)Has been in [facility] and care home for most of a year and did not receive his medications during that time.Was set to start Mayvret when he was jailed for curfew violation. 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 Has had good relief with gabapentin in the past. He was taken off this when he went to care home. We discuss how this has become a more troublesome medication in the setting of substance use disorder.Meeting with Mehran domínguez for possible restart of the MAT program here.HPI performed by: Placido Cartagena MD, May 03, 2020 11:25 AMTransitions of Care InboundProblem ReviewProblem List was reviewed and/or updated during this visit.Medication Reconciliation & ReviewMedication List was reviewed and/or updated during this visit, including review of any jdlm-hcm-mphykak medications, herbal therapies, and/or supplements.Allergy ReviewAllergy List was reviewed and/or updated during this visit.Adult Preventive CareProvider Calculated and Reviewed all Clinical Protocols for patient today. Screening Tobacco Screening: Smoking Status: current every day smoker (05/03/2020) Tobacco Use: Currently (05/03/2020) Advised to Quit: Yes (05/03/2020)Labs/Meds/Other Counseling-Nutrition and Physical Activity:BMI Interpretation: Overweight (05/03/2020) Counseling: Done (05/03/2020) Physical Activity: Done (05/03/2020)Review of Systems General: Denies chills, dizziness, fatigue, fever. Cardiovascular: Denies chest pain. Respiratory: Denies shortness of breath. Gastrointestinal: Complains of nausea. Denies vomiting, constipation, pain or discomfort, change in bowel habits, abdominal pain. Genitourinary: Denies incomplete emptying. Physical ExamGeneral Appearance: well nourished, well hydrated, no acute distressEyes, External: conjunctivae and lids normal, EOMIRespiratory, Auscultation: clear to auscultation bilaterally; no rales, rhonchi, or wheezesRespiratory, Effort: no intercostal retractions or use of accessory musclesCardiovascular, Auscultation: S1, S2 audible; no murmur, rub, or gallop; RRRAbdomen: soft, non-tender, no masses, bowel sounds normalGait & Station: normalSkin, Inspection: no rashes, lesions, or ulcerationsOrientation: oriented to time, place, and personMood & Affect: no depression, anxiety, or agitationJudgment & Insight: intactCare Management Plan Transitions of CareInboundRate Your HealthIn general, would you say your health is? PoorAssessment & Plan Problems:Assessed:Opioid abuse, in remission (VKL97-R52.11) Assessment: Instructions: Has MAT intake today.Hyperlipidemia, unspecified (UBV31-X84.5) Assessment: Instructions: Check fasting blood tests soon.Migraine headache (ICD-346.90) (GOY41-P14.909) Assessment: Instructions: On gabapentin for possible optic neuritis and shoulder pain.Will refer to neurology for further diagnosis and managemnet.We discuss today the risks of prescribing this in terms of KJ and polypharmacy and he voices understanding.Patient Instructions/Care Plan: Opioid abuse- in remission: Has MAT intake today.Hyperlipidemia- unspecified: Check fasting blood tests soon.Migraine headache: On gabapentin for possible optic neuritis and shoulder pain.Will refer to neurology for further diagnosis and managemnet.We discuss today the risks of prescribing this in terms of KJ and polypharmacy and he voices understanding. Plan developed in collaboration with patient and/or familyMedications:GABAPENTIN 100 MG ORAL CAPSULEWELLBUTRIN XL 300 MG ORAL TABLET EXTENDED RELEASE 24 HOURVITAMIN D3 1000 UNIT ORAL TABLETCLARITIN 10 MG ORAL TABLETIBUPROFEN 600 MG ORAL TABLETMedication Changes:New Prescription:G ABAPENTIN 100 MG ORAL CAPSULE-One po qd for 7 days then one po bid. Qty: 60[Capsule] Refills: 1 Method: ElectronicRemoved:GABAPENTIN 300 MG ORAL CAPSULE-1 po tib prn pain, MAVYRET 100-40 MG ORAL TABLET-Take 3 tablets by mouth every day, DOXYCYCLINE HYCLATE 100 MG ORAL TABLET DELAYED RELEASE-1 po bid, NICODERM CQ 21 MG/24HR TRANSDERMAL PATCH 24 HOUR-One patch once daily., SUBOXONE 8-2 MG SUBLINGUAL FILM-One film once daily. MDD 1. APRIL F11.10 APRIL [id number]:PENICILLIN (Critical)Orders:COMP METABOLIC PANEL [CPT-80592] CBC W/DIFF [CPT-63038] LIPID PANEL [CPT-48634] TSH [CPT-13814] Hepatitis C Viral Load [CPT-81990] HCV Genotype [CPT-33533] HBsAg [CPT-26539] HEPATITIS B SURF ANTIBODY HBSAB [CPT-33167] Adult - Ofc Vst, EST, Level III [CPT-43219] Neurology Consult [CPT-02061] Medications:GABAPENTIN 100 MG ORAL CAPSULE (GABAPENTIN) One po qd for 7 days then one po bid. #60[Capsule] x 1 Route:ORAL Entered and Authorized by: Placido Cartagena MD Method used: Electronically to [facility] (retail) [address] [place] [address] Note to Pharmacy: Route: ORAL; RxID: [id number] signed by Placido Cartagena MD on 05/03/2020 at 11:52 AM Name Value Range Interpretation Code Description Data Lauren rce(s) Supporting Document(s) ID Date Data Source [id number] 03/05/2020 12:19:00 PM EDT [facility] Name: NOAH FLOREZ DIN: [id number] F acility: [facility] : 1985 Physician: Solitario Patiño MD Date of Service: 03/03/20 EXAM: CHEST The lungs, mediastinum and chest wall are unremarkable. cc: Dictation Date/Time: 03/05/20 1102 <Electronically signed by Jatinder Wheat MD> Transcribed Date/Time: 03/05/20 1219 03/05/20 1344 Death [facility] Coder: MARIA C Name Value Range Interpretation Code Description Data Lauren rce(s) Supporting Document(s) ID Date Data Source [id number] 02/25/2020 08:40:00 AM EDT [facility] Name Value Range Interpretation Code Description Data Lauren rce(s) Supporting Document(s) SARS CORONAVIRUS 2 RNA [facility] This lab was ordered by [facility] and reported by [facility]. Procedure Social History Code Duration Value Status Description Data Source(s ) Smoking 01/23/2020 12:00:00 AM EDT Unknown if ever smoked comp leted Unknown if ever smoked [facility] ([facility]) Smoking 10/27/2019 12:00:00 AM EST Unknown if ever smoked comp leted Unknown if ever smoked [facility] ([facility])
[2020-10-16] MEDS ORDERED: ANEC4CRE3 TOP (20:32)
[2020-10-16] MEDS ORDERED: NAPR-837 PO (20:32)
[2020-10-16 20:37] VITALS: BP 155/107
== END 2020-10-16 20:48 | disposition home or self-care (01) ==
LOC: M ED 18:17
DX: R21 Rash and other nonspecific skin eruption (principal); B95.7 Other staphylococcus as the cause of diseases classified elsewhere; R06.02 Shortness of breath; I10 Essential (primary) hypertension; Z87.81 Personal history of (healed) traumatic fracture; Z88.0 Allergy status to penicillin; F19.21 Other psychoactive substance dependence, in remission; F17.210 Nicotine dependence, cigarettes, uncomplicated

== ENCOUNTER 2020-10-28 01:26 | Emergency (ER) | payer OTHER ==
[~2020-10-28] VITALS: Ht 180.3 cm; Wt 78.0 kg
[~2020-10-28 01:26] MED LIST changes: +ANEC4CRE3 TOP; +DOXY100T27
--- OUTSIDE RECORDS SUMMARY | 2020-10-28 01:34 | CCD ---
Author Author [facility] Organization [facility] Address Unknown Phone Unavailable Support Name Relationship Address Phone Jeniffer Florez Next Of Kin Unknown Unavailable Navneet RUIZ, Solitario Next Of Kin [address] [place] [address] Osiel RUIZ, Placido Next Of Kin [address] [place] [address] Syd RUIZ, Teri Next Of Kin [address] [place], [place] [id number] [facility] [place] [address] RAISSA FLOREZ Next Of Kin [address] [place] [address] Pedro Luis RPA-C, Irma Next Of Kin [address] [place] [address] Maday YARD ATTENDANT, Susana Next Of Kin [address] [place] [address] Yvan BATES, Jamel Next Of Kin [address] [place] [address] Eddie ANP-BC, Татьяна Next Of Kin [address] [place] [id number] [facility] Next Of Kin [address] [place] [address] UE Next Of Kin Unknown Unavailable NONE, PATIENT PER Next Of Kin - -, [place] - - JENIFFER [place] [address] UNEMPLOYED Next Of Kin Unknown JOSE FLOREZ Next Of Kin [address] [place], [place] [id number] GEMMA RICHARD Next Of Kin [address] [place] [address] TREMAYNE RICHARD Next Of Kin [address] [place] [address] TREMAYNE RICHARD Next Of Kin [address] [place] [address] NOAH FLOREZ Next Of Kin [address] [place] [address] Care Team Providers 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 If you continue you may have access to information: Regarding HIV / AIDS; Provided by facilities licensed or operated by the [facility] Office of Mental Health; or Provided by the [facility] Office for People With Developmental Disabilities. If such information is present, then the following [facility] mandated warning applies: This information has [...] law may result in a fine or intermediate sentence or both. A general authorization for the release of medical or other information is NOT sufficient authorization for further disc losure. Family History Family Member Name Family Member Gender Family Member Status Date o f Status Description Data Source(s) Unknown Male Problem [facility] ([facility]) Encounters Encounter Providers Location Date Indications Data Source(s ) Outpatient Attender: Placido Cartagena MD 06/02/2020 04:31:01 PM EDT [facility] Outpatient Attender: Placido Cartagena MD 06/02/2020 04:30:00 PM EDT [facility] Outpatient Attender: Placido Cartagena MD 05/08/2020 12:02:07 AM EDT [facility] Outpatient Attender: Placido Cartagena MD 05/07/2020 01:59:00 PM EDT [facility] Outpatient Attender: Placido Cartagena MD 05/04/2020 03:27:00 PM EDT [facility] Outpatient Attender: Placido Cartagena MD 05/04/2020 03:26:01 PM EDT [facility] Outpatient Attender: Placido Cartagena MD 05/04/2020 12:02:11 AM EDT [facility] Outpatient Attender: Placido Cartagena MD 05/03/2020 01:44:01 PM EDT [facility] Outpatient Attender: Placido Cartagena MD 05/03/2020 01:43:02 PM EDT [facility] Outpatient Attender: Placido Cartagena MD 05/03/2020 12:03:00 PM EDT [facility] Outpatient Attender: Placido Cartagena MD 05/03/2020 11:59:00 AM EDT [facility] Outpatient Attender: Placido Cartagena MD 05/03/2020 11:55:00 AM EDT [facility] Outpatient Attender: Placido Cartagena MD 05/03/2020 11:54:01 AM EDT [facility] Outpatient Attender: Placido Cartagena MD 05/03/2020 11:53:01 AM EDT [facility] Outpatient Attender: Placido Cartagena MD 05/03/2020 11:49:01 AM EDT [facility] Outpatient Attender: Placido Cartagena MD 05/03/2020 11:39:01 AM EDT [facility] Outpatient Attender: Placido Cartagena MD 05/03/2020 10:52:00 AM EDT [facility] Outpatient Attender: SOLITARIO LOO MD 05/03/2020 10:50:00 A M EDT [facility] Outpatient Attender: SOLITARIO LOO MD 04/12/2020 11:52:01 A M EDT [facility] Outpatient Attender: SOLITARIO LOO MD 04/12/2020 11:20:01 A M EDT [facility] Outpatient Attender: SOLITARIO LOO MD 04/12/2020 11:14:00 A M EDT [facility] Outpatient Attender: SOLITARIO LOO MD 04/12/2020 10:54:00 A M EDT [facility] Outpatient Attender: Solitario Patiño MD [facility] 03/03 03:44:00 PM EDT [id number] [facility] [id number] Attender: Adela Monge 01/23/2020 12:00:00 AM E DT [facility] ([facility]) Brief Individual Psychotherapy - 20 min Attender: Adela arreola [facility] 01/22/2020 01:30:00 AM EDT - 01/22/2020 01:30:00 AM EDT [facility] ([facility]) Outpatient Attender: SOLITARIO LOO MD 12/23/2019 09:01:02 P M EDT [facility] Attender: Adela Monge 10/27/2019 12:00:[address] [facility] ([facility]) Brief Individual Psychotherapy - 30 min Attender: Adela arreola [facility] 10/23/2019 09:15:00 AM EST - 10/23/2019 09:15:00 AM EST [facility] ([facility]) Medications Medication Brand Name Start Date Product [...] AREA(S) TWO TIMES A DAY SOLD: 06/03/2020 [facility] 10 mg 06/03/2020 12:00:00 AM EDT [...] type / Coverage type Policy ID Covered republican ID Covered republican's relationship to duran Policy Duran Plan Information UN COMMUNITY PLAN MCDHMO [id number] SP [id number] [facility] COMMUNITY PLAN MCDHMO [id number] SP [id number] SELF PAY ONLY [id number] SP [id number] YURY RICEIFF DEPT [id number] SP [id number] Medicaid P [id number] S [id number] Managed Care [facility] Community Plan P [id number] S [id number] Medicaid S [id number] S [id number] Managed Care - Community Plan [facility] P [id number] S [id number] UN COMMUNITY PLAN MCDHMO [id number] SP [id number] [facility] COMMUNITY PLAN MCDHMO [id number] SP [id number] [facility] COMMUNITY PLAN MCDHMO [id number] SP [id number] Self Pay P [id number] S [id number] Self Pay P UNAVAILABLE S UNAVAILA BLE MEDICAID [id number] SP [id number] Medicaid P [id number] S [id number] Medicaid [place] [id number] Self [id number] MEDICAID M [id number] S [id number] Medicaid P [id number] S [id number] MEDICAID -PHYSICIAN [id number] 1 [id number] MEDICAID - O/P EMERGENCY ROOM [id number] Medicaid P [id number] S [id number] MEDICAID [id number] Lisa [id number] [facility] [id number] SP [id number] Managed Care - Community Plan [facility] P [id number] S [id number] Managed Care - Community Plan [facility] P [id number] S [id number] Managed Care BCBS O [id number] S [id number] Medicaid S [id number] S [id number] Medicaid S UNAVAILABLE S UNAVAILA BLE EXCELLUS BCBS P [id number] C [id number] EXCELLUS BCBS P UNAVAILABLE C UNAV AILABLE [id number] Problems, Conditions, and Diagnoses Code Display Name Description Problem Type Effective Dates Data Source(s) F41.9 Anxiety disorder, unspecified Unspecified Anxiety Diso rder Condition 01/23/2020 12:00:00 AM EDT [facility] ([facility]) F11.20 Opioid dependence, uncomplicated Opioid Use Disorder, Severe Condition 01/23/2020 12:00:00 AM EDT [facility] ([facility]) Surgeries/Procedures Procedure Description Date Indications Data Source(s) Brief Individual Psychotherapy - 20 min 01/23/2020 12:00:00 AM EDT - 01/23/2020 12:00:00 AM EDT [facility] ([facility]) Brief Individual Psychotherapy - 20 min 01/22/2020 12: 00:00 AM EDT [facility] ([facility]) Brief Individual Psychotherapy - 30 min 10/27/2019 12:00:00 AM EST - 10/27/2019 12:00:00 AM EST [facility] ([facility]) Brief Individual Psychotherapy - 30 min 10/23/2019 12: 00:00 AM EST [facility] ([facility]) Results ID Date Data Source [id number] 05/03/2020 11:16:16 AM EDT [facility] Measurements & CalculationsHeight: 71 inches (5 ft. 11 in.) 180.34 cm Weight: 194 pounds 88.18 kg Body Mass Index (BMI): 27.16BMI Interpretation: OverweightBody Surface Area (BSA): 2.08Weight Management Education Done (Nutrition/Physical Activity)Vital SignsTemperature: 97.7FPulse Rate: 85 beats/minuteRespiratory Rate: 16 respirations/minuteBlood Pressure: 109/76 O2 Saturation: 100% Vital Signs performed by: Shanelle Narvaez MA, May 03, 2020 11:22 AMNurses Note pt was just released from intermediate 04/08 after being there for a year [...] examHistory of Present Illness (HPI)Has been in intermediate and intermediate for most of a year and did [...] taken off this when he went to intermediate. We discuss how this has become a more troublesome medication in the setting of substance use disorder.Meeting with Mehran doímnguez for possible restart of the MAT program here.HPI performed by: Placido Cartagena MD, May 03, 2020 11:25 AMTransitions of Care InboundProblem ReviewProblem List was reviewed and/or updated during this visit.Medication Reconciliation & ReviewMedication List was reviewed and/or updated during this visit, including review of any svsb-klp-jsgonuq medications, herbal therapies, and/or supplements.Allergy ReviewAllergy List [...] PoorAssessment & Plan Problems:Assessed:Opioid abuse, in remission (NCE50-G49.11) Assessment: Instructions: Has MAT intake today.Hyperlipidemia, unspecified (XMP60-B67.5) Assessment: Instructions: Check fasting blood tests soon.Migraine headache (ICD-346.90) (CGS48-T71.909) Assessment: Instructions: On gabapentin for possible optic [...] once daily. MDD 1. APRIL F11.10 APRIL [id number]:PENICILLIN (Critical)Orders:COMP METABOLIC PANEL [CPT-92986] CBC W/DIFF [CPT-77942] LIPID PANEL [CPT-67158] TSH [CPT-23578] Hepatitis C Viral Load [CPT-89958] HCV Genotype [CPT-66339] HBsAg [CPT-37220] HEPATITIS B SURF ANTIBODY HBSAB [CPT-95095] Adult - Ofc Vst, EST, Level III [CPT-54175] Neurology Consult [CPT-49421] Medications:GABAPENTIN 100 MG ORAL CAPSULE (GABAPENTIN) One po qd for 7 days then one po bid. #60[Capsule] x 1 Route:ORAL Entered and Authorized by: Placido Cartagena MD Method used: Electronically to [facility] (retail) [address] [place] [address] Note to Pharmacy: Route: ORAL; RxID: [id number] signed by Placido Cartagena MD on 05/03/2020 at 11:52 AM Name Value Range Interpretation Code Description Data Lauren rce(s) Supporting Document(s) ID Date Data Source [id number] 03/05/2020 12:19:00 PM EDT [facility] Name: NOAH FLOREZ DIN: [id number] F acility: [facility] : 1985 Physician: Solitario Patiño MD Date of Service: 03/03/20 EXAM: CHEST The lungs, mediastinum and chest wall are unremarkable. cc: Dictation Date/Time: 03/05/20 1102 <Electronically signed by Jatinder Wheat MD> Transcribed Date/Time: 03/05/20 1219 03/05/20 1344 [employer] Supervisor: MARIA C Name Value Range Interpretation Code Description Data Lauren rce(s) Supporting Document(s) ID Date Data Source [id number] 02/25/2020 08:40:00 AM EDT [facility] Name Value Range Interpretation Code Description Data Lauren rce(s) Supporting Document(s) SARS CORONAVIRUS 2 RNA [facility] This lab was ordered by [facility] and reported by [facility]. Procedure Social History Code Duration Value Status Description Data Source(s ) Smoking 01/23/2020 12:00:00 AM EDT Unknown if ever smoked comp leted Unknown if ever smoked [facility] ([facility]) Smoking 10/27/2019 12:00:00 AM EST Unknown if ever smoked comp leted Unknown if ever smoked [facility] ([facility])
--- OUTSIDE RECORDS SUMMARY | 2020-10-28 03:26 | CCD ---
Author Author [facility] Organization [facility] Address Unknown Phone Unavailable Support Name Relationship Address Phone Jeniffer Florez Next Of Kin Unknown Unavailable Navneet RUIZ, Solitario Next Of Kin [address] [place] [address] Osiel RUIZ, Placido Next Of Kin [address] [place] [address] Syd RUIZ, Teri Next Of Kin [address] [place], [place] [id number] [facility] [place] [address] RAISSA FLOREZ Next Of Kin [address] [place] [address] Pedro Luis RPA-C, Irma Next Of Kin [address] [place] [address] Maday DEBEAKER, Susana Next Of Kin [address] [place] [address] Yvan BATES, Jamel Next Of Kin [address] [place] [address] Eddie ANP-BC, Татьяна Next Of Kin [address] [place] [address] [facility] Next Of Kin [address] [place] [address] UE Next Of Kin Unknown Unavailable NONE, PATIENT PER Next Of Kin - -, [place] - - JENIFFER FLOREZ [place] [address] UNEMPLOYED Next Of Kin Unknown JOSE FLOREZ Next Of Kin [address] [place], [place] [id number] GEMMA RICHARD Next Of Kin [address] [place] [address] TREMAYNE RICHARD Next Of Kin [address] [place] [address] TREMAYNE RICHARD Next Of Kin [address] [place] [address] NOAH FLOREZ Next Of Kin [address] [place] [address] Care Team Providers Care Mica Spreader Name Role Phone Kathleen Patiño MD Unavailable [...] is protected by Article 27-F of the [facility] Public Health law. If you continue you may have access to information: Regarding HIV / AIDS; Provided by facilities licensed or operated by the [facility] Office of Mental Health; or Provided by the [facility] Office for People With Developmental Disabilities. If such information is present, then the following [facility] mandated warning applies: This information has [...] law may result in a fine or penitentiary sentence or both. A general authorization for [...] Placido Cartagena MD 06/02/2020 04:31:01 PM EDT [facility] Outpatient Attender: Placido Cartagena MD 06/02/2020 04:30:00 PM EDT [facility] Outpatient Attender: Placido Cartagena MD 05/08/2020 12:02:07 AM EDT [facility] Outpatient Attender: Placido Cartagena MD 05/07/2020 01:59:00 PM EDT [facility] Outpatient Attender: Placido Cartagena MD 05/04/2020 03:27:00 PM EDT [facility] Outpatient Attender: Placido Cartagena MD 05/04/2020 03:26:01 PM EDT [facility] Outpatient Attender: Placido Cartagena MD 05/04/2020 12:02:11 AM EDT [facility] Outpatient Attender: Placido Cartagena MD 05/03/2020 01:44:01 PM EDT [facility] Outpatient Attender: Placido Cartagena MD 05/03/2020 01:43:02 PM EDT [facility] Outpatient Attender: Placido Cartagena MD 05/03/2020 12:03:00 PM EDT [facility] Outpatient Attender: Placido Cartagena MD 05/03/2020 11:59:00 AM EDT [facility] Outpatient Attender: Placido Cartagena MD 05/03/2020 11:55:00 AM EDT [facility] Outpatient Attender: Placido Cartagena MD 05/03/2020 11:54:01 AM EDT [facility] Outpatient Attender: Placido Cartagena MD 05/03/2020 11:53:01 AM EDT [facility] Outpatient Attender: Placido Cartagena MD 05/03/2020 11:49:01 AM EDT [facility] Outpatient Attender: Placido Cartagena MD 05/03/2020 11:39:01 AM EDT [facility] Outpatient Attender: Placido Cartagena MD 05/03/2020 10:52:00 AM EDT [facility] Outpatient Attender: SOLITARIO LOO MD 05/03/2020 10:50:00 A M EDT [facility] Outpatient Attender: SOLITARIO LOO MD 04/12/2020 11:52:01 A M EDT [facility] Outpatient Attender: SOLITARIO LOO MD 04/12/2020 11:20:01 A M EDT [facility] Outpatient Attender: SOLITARIO LOO MD 04/12/2020 11:14:00 A M EDT [facility] Outpatient Attender: SOLITARIO LOO MD 04/12/2020 10:54:00 A M EDT [facility] Outpatient Attender: Solitario Patiño MD [facility] 03/03 03:44:[id number] [facility] [id number] Attender: Adela Monge 01/23/2020 12:00:00 AM E DT [facility] ([facility]) Brief Individual Psychotherapy - 20 min Attender: Adela arreola [facility] 01/22/2020 01:30:00 AM EDT - 01/22/2020 01:30:00 AM EDT [facility] ([facility]) Outpatient Attender: SOLITARIO LOO MD 12/23/2019 09:01:02 P M EDT [facility] Attender: Adela Monge 10/27/2019 12:00:[address] [facility] ([facility]) Brief Individual Psychotherapy - 30 min Attender: Adela arreola [facility] 10/23/2019 09:15:00 AM EST - 10/23/2019 09:15:00 AM EST [facility] ([facility]) Medications Medication Brand Name Start Date Product [...] Duran Plan Information UN COMMUNITY PLAN MCDHMO [id number] SP [id number] [facility] COMMUNITY PLAN MCDHMO [id number] SP [id number] SELF PAY ONLY [id number] SP [id number] YURY RICEIFF DEPT [id number] SP [id number] Medicaid P [id number] S [id number] Managed Care [facility] Community Plan P [id number] S [id number] Medicaid S [id number] S [id number] Managed Care - Community Plan [facility] P [id number] S [id number] UN COMMUNITY PLAN MCDHMO [id number] SP [id number] [facility] COMMUNITY PLAN MCDHMO [id number] SP [id number] [facility] COMMUNITY PLAN MCDHMO [id number] SP [id number] Self Pay P [id number] S [id number] Self Pay P UNAVAILABLE S UNAVAILA BLE MEDICAID [id number] SP [id number] Medicaid P [id number] S [id number] Medicaid [place] Medicaid [id number] Self [id number] MEDICAID M [id number] S [id number] Medicaid P [id number] S [id number] MEDICAID -PHYSICIAN [id number] 1 [id number] MEDICAID - O/P EMERGENCY ROOM [id number] 18 [id number] Medicaid P [id number] S [id number] MEDICAID [id number] Lisa [id number] [facility] [id number] SP [id number] Managed Care - Community Plan [facility] P [id number] S [id number] Managed Care - Community Plan [facility] P [id number] S [id number] Managed Care BCBS O [id number] S [id number] Medicaid S [id number] S [id number] Medicaid S UNAVAILABLE S UNAVAILA BLE EXCELLUS BCBS P [id number] C [id number] [id number] EXCELLUS BCBS P UNAVAILABLE C UNAV AILABLE [id number] Problems, Conditions, and Diagnoses Code Display Name Description Problem Type Effective Dates Data Source(s) F41.9 Anxiety disorder, unspecified Unspecified Anxiety Diso rder Condition 01/23/2020 12:00:00 AM EDT [facility] ([facility]) F11.20 Opioid dependence, uncomplicated Opioid Use Disorder, Severe Condition 01/23/2020 12:00:00 AM EDT [facility] ([facility]) Surgeries/Procedures Procedure Description Date Indications Data Source(s) Brief Individual Psychotherapy - 20 min 01/23/2020 12:00:00 AM EDT - 01/23/2020 12:00:00 AM EDT [facility] ([facility]) Brief Individual Psychotherapy - 20 min 01/22/2020 12: 00:00 AM EDT [facility] ([facility]) Brief Individual Psychotherapy - 30 min 10/27/2019 12:00:00 AM EST - 10/27/2019 12:00:00 AM EST [facility] ([facility]) Brief Individual Psychotherapy - 30 min 10/23/2019 12: 00:00 AM EST [facility] ([facility]) Results ID Date Data Source [id number] 05/03/2020 11:16:16 AM EDT [facility] Measurements & CalculationsHeight: 71 inches [...] AMNurses Note pt was just released from penitentiary 04/08 after being there for a year [...] examHistory of Present Illness (HPI)Has been in penitentiary and correction for most of a year and did [...] taken off this when he went to correction. We discuss how this has become a [...] during this visit, including review of any tymy-lmy-xwdmebp medications, herbal therapies, and/or supplements.Allergy ReviewAllergy List [...] PoorAssessment & Plan Problems:Assessed:Opioid abuse, in remission (TVL84-S06.11) Assessment: Instructions: Has MAT intake today.Hyperlipidemia, unspecified (RLE77-S06.5) Assessment: Instructions: Check fasting blood tests soon.Migraine headache (ICD-346.90) (TJG50-N23.909) Assessment: Instructions: On gabapentin for possible optic [...] once daily. MDD 1. APRIL F11.10 APRIL [id number]:PENICILLIN (Critical)Orders:COMP METABOLIC PANEL [CPT-63933] CBC W/DIFF [CPT-78131] LIPID PANEL [CPT-10825] TSH [CPT-87250] Hepatitis C Viral Load [CPT-41968] HCV Genotype [CPT-83076] HBsAg [CPT-19043] HEPATITIS B SURF ANTIBODY HBSAB [CPT-02434] Adult - Ofc Vst, EST, Level III [CPT-73824] Neurology Consult [CPT-30179] Medications:GABAPENTIN 100 MG ORAL CAPSULE (GABAPENTIN) One po qd for 7 days then one po bid. #60[Capsule] x 1 Route:ORAL Entered and Authorized by: Placido Cartagena MD Method used: Electronically to [facility] (retail) [address] [place] [address] Note to Pharmacy: Route: ORAL; RxID: [id number] signed by Placido Cartagena MD on 05/03/2020 at 11:52 AM Name Value Range Interpretation Code Description Data Lauren rce(s) Supporting Document(s) ID Date Data Source [id number] 03/05/2020 12:19:00 PM EDT [facility] Name: NOAH FLOREZ DIN: [id number] F acility: [facility] : 1985 Physician: Solitario Patiño MD Date of Service: 03/03/20 EXAM: CHEST The lungs, mediastinum and chest wall are unremarkable. cc: Dictation Date/Time: 03/05/20 1102 <Electronically signed by Jatinder Wheat MD> Transcribed Date/Time: 03/05/20 1219 03/05/20 1344 [employer] Hand Solderer: MARIA C Name Value Range Interpretation Code Description Data Lauren rce(s) Supporting Document(s) ID Date Data Source [id number] 02/25/2020 08:40:00 AM EDT [facility] Name Value Range Interpretation Code Description Data Lauren rce(s) Supporting Document(s) SARS CORONAVIRUS 2 RNA [facility] This lab was ordered by [facility] and reported by [facility]. Procedure Social History Code Duration Value Status Description Data Source(s ) Smoking 01/23/2020 12:00:00 AM EDT Unknown if ever smoked comp leted Unknown if ever smoked [facility] ([facility]) Smoking 10/27/2019 12:00:00 AM EST Unknown if ever smoked comp leted Unknown if ever smoked [facility] ([facility])
[2020-10-28] MEDS ORDERED: PRED20TA PO (04:28)
[2020-10-28] MEDS ORDERED: ALBUTEROL 90 MCG/ACT 8GM HFA INHALER INH ONE (04:30)
[2020-10-28] MEDS ORDERED: predniSONE 20 MG TAB PO ONE (04:30)
[2020-10-28 04:46] VITALS: BP 127/61
== END 2020-10-28 04:47 | disposition home or self-care (01) ==
LOC: M ED 01:26
DX: J20.9 Acute bronchitis, unspecified (principal); B34.9 Viral infection, unspecified; J02.9 Acute pharyngitis, unspecified; F19.10 Other psychoactive substance abuse, uncomplicated

== ENCOUNTER 2020-10-31 13:45 | Emergency (ER) | payer OTHER ==
[~2020-10-31] VITALS: Ht 182.9 cm; Wt 77.8 kg
[~2020-10-31 13:45] MED LIST changes: +PRED20TA PO
--- OUTSIDE RECORDS SUMMARY | 2020-10-31 13:54 | CCD ---
Author Author [facility] Organization [facility] Address Unknown Phone Unavailable Support Name Relationship Address Phone Jeniffer Florez Next Of Kin Unknown Unavailable Navneet RUIZ, Solitario Next Of Kin [address] [place] [address] Osiel RUIZ, Placido Next Of Kin [address] [place] [address] Syd RUIZ, Teri Next Of Kin [address] [place], [place] [id number] [facility] [place] [address] RAISSA FLOREZ Next Of Kin [address] [place] [address] Pedro Luis RPA-C, Irma Next Of Kin [address] [place] [address] Maday [employer], Susana Next Of Kin [address] [place] [address] Yvan BATES, Jamel Next Of Kin [address] [place] [address] Eddie ANP-BC, Татьяна Next Of Kin [address] [place] [id number] [facility] Next Of Kin [address] [place] [address] UE Next Of Kin Unknown Unavailable NONE, PATIENT PER Next Of Kin - -, [place] - - JENIFFER [place] [address] UNEMPLOYED Next Of Kin Unknown OJSE FLOREZ Next Of Kin [address] [place], [place] [id number] GEMMA RICHARD Next Of Kin [address] [place] [address] TREMAYNE RICHARD Next Of Kin [address] [place] [address] TREMAYNE RICHARD Next Of Kin [address] [place] [address] NOAH FLOREZ Next Of Kin [address] [place] [address] Care Team Providers Care Hydrographic Engineer Name Role Phone Kathleen Patiño MD Unavailable [...] protected by Article 27-F of the [facility] Public Health law. If you continue you may have access to information: Regarding HIV / AIDS; Provided by facilities licensed or operated by the [facility] Office of Mental Health; or Provided by the [facility] Office for People With Developmental Disabilities. If such information is present, then the following [facility] mandated warning applies: This information has [...] law may result in a fine or skilled nursing sentence or both. A general authorization for the release of medical or other information is NOT sufficient authorization for further disc losure. Family History Family Member Name Family Member Gender Family Member Status Date o f Status Description Data Source(s) Unknown Male Problem [facility] ([facility]) Encounters Encounter Providers Location Date Indications Data Source(s ) Outpatient Attender: Placido Cartagena MD 06/02/2020 04:31:01 PM EDT [facility] Outpatient Attender: Placido Cartagena MD 06/02/2020 04:30:00 PM EDT [facility] Outpatient Attender: Placido Cartagena MD 05/08/2020 12:02:07 AM EDT [facility] Outpatient Attender: Placido Cartagena MD 05/07/2020 01:59:00 PM EDT [facility] Outpatient Attender: Placido Cartagena MD 05/04/2020 03:27:00 PM EDT [facility] Outpatient Attender: Placido Cartagena MD 05/04/2020 03:26:01 PM EDT [facility] Outpatient Attender: Placido Cartagena MD 05/04/2020 12:02:11 AM EDT [facility] Outpatient Attender: Placido Cartagena MD 05/03/2020 01:44:01 PM EDT [facility] Outpatient Attender: Placido Cartagena MD 05/03/2020 01:43:02 PM EDT [facility] Outpatient Attender: Placido Cartagena MD 05/03/2020 12:03:00 PM EDT [facility] Outpatient Attender: Placido Cartagena MD 05/03/2020 11:59:00 AM EDT [facility] Outpatient Attender: Placido Cartagena MD 05/03/2020 11:55:00 AM EDT [facility] Outpatient Attender: Placido Cartagena MD 05/03/2020 11:54:01 AM EDT [facility] Outpatient Attender: Placido Cartagena MD 05/03/2020 11:53:01 AM EDT [facility] Outpatient Attender: Placido Cartagena MD 05/03/2020 11:49:01 AM EDT [facility] Outpatient Attender: Placido Cartagena MD 05/03/2020 11:39:01 AM EDT [facility] Outpatient Attender: Placido Cartagena MD 05/03/2020 10:52:00 AM EDT [facility] Outpatient Attender: SOLITARIO LOO MD 05/03/2020 10:50:00 A M EDT [facility] Outpatient Attender: SOLITARIO LOO MD 04/12/2020 11:52:01 A M EDT [facility] Outpatient Attender: SOLITARIO LOO MD 04/12/2020 11:20:01 A M EDT [facility] Outpatient Attender: SOLITARIO LOO MD 04/12/2020 11:14:00 A M EDT [facility] Outpatient Attender: SOLITARIO LOO MD 04/12/2020 10:54:00 A M EDT [facility] Outpatient Attender: Solitario Patiño MD [facility] 03/03 03:44:00 PM EDT [id number] [facility] [id number] Attender: Adela Monge 01/23/2020 12:00:00 AM E DT [facility] ([facility]) Brief Individual Psychotherapy - 20 min Attender: Adela arreola [facility] 01/22/2020 01:30:00 AM EDT - 01/22/2020 01:30:00 AM EDT [facility] ([facility]) Outpatient Attender: SOLITARIO LOO MD 12/23/2019 09:01:02 P M EDT [facility] Attender: Adela Monge 10/27/2019 12:00:[address] [facility] ([facility]) Brief Individual Psychotherapy - 30 min Attender: Adela arreola [facility] 10/23/2019 09:15:00 AM EST - 10/23/2019 09:15:00 AM EST [facility] ([facility]) Medications Medication Brand Name Start Date Product [...] type / Coverage type Policy ID Covered green party ID Covered green party's relationship to duran Policy Duran Plan Information UN COMMUNITY PLAN MCDHMO [id number] SP [id number] COMMUNITY HEALTH COMMUNITY PLAN MCDHMO [id number] SP [id number] SELF PAY ONLY [id number] SP [id number] YURY RICEIFF DEPT [id number] SP [id number] Medicaid P [id number] S [id number] Managed Care [facility] Community Plan P [id number] S [id number] Medicaid S [id number] S [id number] Managed Care - Community Plan [facility] P [id number] S [id number] UN COMMUNITY PLAN MCDHMO [id number] SP [id number] COMMUNITY HEALTH COMMUNITY PLAN MCDHMO [id number] SP [id number] COMMUNITY HEALTH COMMUNITY PLAN MCDHMO [id number] SP [id number] Self Pay P [id number] S [id number] Self Pay P UNAVAILABLE S UNAVAILA BLE MEDICAID [id number] SP [id number] Medicaid P [id number] S [id number] Medicaid [place] [id number] Self [id number] MEDICAID M [id number] S [id number] Medicaid P [id number] S [id number] MEDICAID -PHYSICIAN [id number] 1 [id number] MEDICAID - O/P EMERGENCY ROOM [id number] Medicaid P [id number] S [id number] MEDICAID [id number] Lisa [id number] [facility] [id number] SP [id number] Managed Care - Community Plan [facility] P [id number] S [id number] Managed Care - Community Plan [facility] P [id number] S [id number] Managed Care BCBS O [id number] S [id number] Medicaid S [id number] S [id number] Medicaid S UNAVAILABLE S UNAVAILA BLE EXCELLUS BCBS P [id number] C [id number] [id number] EXCELLUS BCBS P UNAVAILABLE C UNAV AILABLE [id number] Problems, Conditions, and Diagnoses Code Display Name Description Problem Type Effective Dates Data Source(s) F41.9 Anxiety disorder, unspecified Unspecified Anxiety Diso rder Condition 01/23/2020 12:00:00 AM EDT [facility] ([facility]) F11.20 Opioid dependence, uncomplicated Opioid Use Disorder, Severe Condition 01/23/2020 12:00:00 AM EDT [facility] ([facility]) Surgeries/Procedures Procedure Description Date Indications Data Source(s) Brief Individual Psychotherapy - 20 min 01/23/2020 12:00:00 AM EDT - 01/23/2020 12:00:00 AM EDT [facility] ([facility]) Brief Individual Psychotherapy - 20 min 01/22/2020 12: 00:00 AM EDT [facility] ([facility]) Brief Individual Psychotherapy - 30 min 10/27/2019 12:00:00 AM EST - 10/27/2019 12:00:00 AM EST [facility] ([facility]) Brief Individual Psychotherapy - 30 min 10/23/2019 12: 00:00 AM EST [facility] ([facility]) Results ID Date Data Source [id number] 10/28/2020 03:59:00 AM EST [facility] Name Value Range Interpretation Code Description Data Lauren rce(s) Supporting Document(s) SARS COVID ANTIGEN NEGATIVE [facility] This lab was ordered by SHASHA [facility] nd reported by [facility]. ID Date Data Source [id number] 05/03/2020 11:16:16 AM EDT [facility] Measurements & CalculationsHeight: 71 inches (5 [...] AMNurses Note pt was just released from skilled nursing 04/08 after being there for a year [...] Medical History:Anxiety DisorderHypertensionSubstance abusetbiSurgical History:L EYE CONSTRUCTION 2001Family History:FH DiabetesFH HypertensionDiabetes (Father)Social/Personal History:Smoking History:Patient currently smokes every day.Patient has been counseled to quit. Advised to Quit/Tobacco Education: YesChief Complaintannual examHistory of Present Illness (HPI)Has been in skilled nursing and detention for most of a year and did [...] taken off this when he went to detention. We discuss how this has become a [...] during this visit, including review of any bhgl-pvz-pphjqla medications, herbal therapies, and/or supplements.Allergy ReviewAllergy List [...] PoorAssessment & Plan Problems:Assessed:Opioid abuse, in remission (QQH91-Y15.11) Assessment: Instructions: Has MAT intake today.Hyperlipidemia, unspecified (MVO41-N25.5) Assessment: Instructions: Check fasting blood tests soon.Migraine headache (ICD-346.90) (SFB80-I63.909) Assessment: Instructions: On gabapentin for possible optic [...] once daily. MDD 1. APRIL F11.10 APRIL [id number]:PENICILLIN (Critical)Orders:COMP METABOLIC PANEL [CPT-93520] CBC W/DIFF [CPT-50525] LIPID PANEL [CPT-47600] TSH [CPT-82870] Hepatitis C Viral Load [CPT-63276] HCV Genotype [CPT-47085] HBsAg [CPT-93038] HEPATITIS B SURF ANTIBODY HBSAB [CPT-63569] Adult - Ofc Vst, EST, Level III [CPT-96737] Neurology Consult [CPT-99534] Medications:GABAPENTIN 100 MG ORAL CAPSULE (GABAPENTIN) One po qd for 7 days then one po bid. #60[Capsule] x 1 Route:ORAL Entered and Authorized by: Placido Cartagena MD Method used: Electronically to [facility] (retail) [address] [place] [address] Note to Pharmacy: Route: ORAL; RxID: [id number] signed by Placido Cartagena MD on 05/03/2020 at 11:52 AM Name Value Range Interpretation Code Description Data Lauren rce(s) Supporting Document(s) ID Date Data Source [id number] 03/05/2020 12:19:00 PM EDT [facility] Name: NOAH FLOREZ DIN: [id number] F acility: [facility] : 1985 Physician: Solitario Patiño MD Date of Service: 03/03/20 EXAM: CHEST The lungs, mediastinum and chest wall are unremarkable. cc: Dictation Date/Time: 03/05/20 1102 <Electronically signed by Jatinder Wheat MD> Transcribed Date/Time: 03/05/20 1219 03/05/20 1344 Clothes Designer: MARIA C Name Value Range Interpretation Code Description Data Lauren rce(s) Supporting Document(s) ID Date Data Source [id number] 02/25/2020 08:40:00 AM EDT [facility] Name Value Range Interpretation Code Description Data Lauren rce(s) Supporting Document(s) SARS CORONAVIRUS 2 RNA [facility] This lab was ordered by [facility] and reported by [facility]. Procedure Social History Code Duration Value Status Description Data Source(s ) Smoking 01/23/2020 12:00:00 AM EDT Unknown if ever smoked comp leted Unknown if ever smoked [facility] ([facility]) Smoking 10/27/2019 12:00:00 AM EST Unknown if ever smoked comp leted Unknown if ever smoked [facility] ([facility])
[2020-10-31 15:14] LABS: BASO # 0.1 10^3/uL (0.0-0.2); BASO % 0.9 % (0.0-1.0); EOS # 0.1 10^3/uL (0.0-0.5); EOS % 1.1 % (0.0-3.0); HEMATOCRIT 44.7 % (42.0-52.0); HEMOGLOBIN 14.5 g/dl (13.5-17.5); LYMPH # 1.7 10^3/uL (1.5-5.0); LYMPH % 18.4 % (24.0-44.0); MEAN CORPUSCULAR HEMOGLOBIN 29.8 pg (27.0-33.0); MEAN CORPUSCULAR HGB CONC 32.4 g/dl (32.0-36.5); MEAN CORPUSCULAR VOLUME 91.8 fl (80.0-96.0); MONO # 0.7 10^3/uL (0.0-0.8); MONO % 7.8 % (2.0-8.0); NEUTROPHILS # 6.8 10^3/uL (1.5-8.5); NEUTROPHILS % 71.4 % (36.0-66.0); PLATELET COUNT, AUTOMATED 284 10^3/uL (150-450); RED BLOOD COUNT 4.87 10^6/uL (4.30-6.10); WHITE BLOOD COUNT 9.5 10^3/uL (4.0-10.0)
--- OUTSIDE RECORDS SUMMARY | 2020-10-31 15:32 | CCD ---
Author Author [facility] Organization [facility] Address Unknown Phone Unavailable Support Name Relationship Address Phone Jeniffer Florez Next Of Kin Unknown Unavailable Navneet RUIZ, Solitario Next Of Kin [address] [place] [address] Osiel RUIZ, Placido Next Of Kin [address] [place] [address] Syd RUIZ, Teri Next Of Kin [address], [place] [id number] [facility] [place] [address] RAISSA FLOREZ Next Of Kin [address] [place] [address] Pedro Luis RPA-C, Irma Next Of Kin [address] [place] [address] Maday PIGSKIN TRIMMER, Susana Next Of Kin [address] [place] [address] Yvan BATES, Jamel Next Of Kin [address] [place] [address] Eddie ANP-BC, Татьяна Next Of Kin [address] [place] [id number] [facility] Next Of Kin [address] [place] [address] UE Next Of Kin Unknown Unavailable NONE, PATIENT PER Next Of Kin - -, [place] - - JENIFFER FLOREZ [place] [address] UNEMPLOYED Next Of Kin Unknown JOSE FLOREZ Next Of Kin [address] [place], [place] [id number] GEMMA RICHARD Next Of Kin [address] [place] [address] TREMAYNE RICHARD Next Of Kin [address] [place] [address] TREMAYNE RICHARD Next Of Kin [address] [place] [address] NOAH FLOREZ Next Of Kin [address] [place] [address] Care Team Providers Care Education Department Chair Name Role Phone Kathleen Patiño MD Unavailable [...] Unavailable Michelet Cartagena MD Unavailable Unavailable Michelet Caratgena MD Unavailable Unavailable Michelet Cartagena MD Unavailable [...] Unavailable Michelet Cartagena MD Unavailable Unavailable Michelet Cartagean MD Unavailable Unavailable Michelet Cartagena MD Unavailable [...] Unavailable Nicole LOO MD Unavailable Unavailable Nicole OLO MD Unavailable Unavailable Nicole LOO MD Unavailable [...] is protected by Article 27-F of the [facility] Public Health law. If you continue you may have access to information: Regarding HIV / AIDS; Provided by facilities licensed or operated by the [facility] Office of Mental Health; or Provided by the [facility] Office for People With Developmental Disabilities. If such information is present, then the following [facility] mandated warning applies: This information has [...] law may result in a fine or long term sentence or both. A general authorization for the release of medical or other information is NOT sufficient authorization for further disc losure. Family History Family Member Name Family Member Gender Family Member Status Date o f Status Description Data Source(s) Unknown Male Problem [facility] ([facility]) Encounters Encounter Providers Location Date Indications Data Source(s ) Outpatient Attender: Placido Cartagena MD 06/02/2020 04:31:01 PM EDT [facility] Outpatient Attender: lPacido Cartagena MD 06/02/2020 04:30:00 PM EDT [facility] Outpatient Attender: Placido Cartagena MD 05/08/2020 12:02:07 AM EDT [facility] Outpatient Attender: Placido Cartagena MD 05/07/2020 01:59:00 PM EDT [facility] Outpatient Attender: Placido Cartagena MD 05/04/2020 03:27:00 PM EDT [facility] Outpatient Attender: Placido Cartagena MD 05/04/2020 03:26:01 PM EDT [facility] Outpatient Attender: Placido Cartagena MD 05/04/2020 12:02:11 AM EDT [facility] Outpatient Attender: Placido Cartagena MD 05/03/2020 01:44:01 PM EDT [facility] Outpatient Attender: Placido Cartagena MD 05/03/2020 01:43:02 PM EDT [facility] Outpatient Attender: Placido Cartagena MD 05/03/2020 12:03:00 PM EDT [facility] Outpatient Attender: Placido Cartagena MD 05/03/2020 11:59:00 AM EDT [facility] Outpatient Attender: Placido Cartagena MD 05/03/2020 11:55:00 AM EDT [facility] Outpatient Attender: Placido Cartagena MD 05/03/2020 11:54:01 AM EDT [facility] Outpatient Attender: Placido Cartagena MD 05/03/2020 11:53:01 AM EDT [facility] Outpatient Attender: Placido Cartagena MD 05/03/2020 11:49:01 AM EDT [facility] Outpatient Attender: Placido Cartagena MD 05/03/2020 11:39:01 AM EDT [facility] Outpatient Attender: Placido Cartagena MD 05/03/2020 10:52:00 AM EDT [facility] Outpatient Attender: SOLITARIO LOO MD 05/03/2020 10:50:00 A M EDT [facility] Outpatient Attender: SOLITARIO LOO MD 04/12/2020 11:52:01 A M EDT [facility] Outpatient Attender: SOLITARIO LOO MD 04/12/2020 11:20:01 A M EDT [facility] Outpatient Attender: SOLITARIO LOO MD 04/12/2020 11:14:00 A M EDT [facility] Outpatient Attender: SOLITARIO LOO MD 04/12/2020 10:54:00 A M EDT [facility] Outpatient Attender: Solitario Patiño MD [facility] 03/03 03:44:00 PM EDT [id number] [facility] [id number] Attender: Adela Monge 01/23/2020 12:00:00 AM E DT [facility] ([facility]) Brief Individual Psychotherapy - 20 min Attender: Adela arreola [facility] 01/22/2020 01:30:00 AM EDT - 01/22/2020 01:30:00 AM EDT [facility] ([facility]) Outpatient Attender: SOLITARIO LOO MD 12/23/2019 09:01:02 P M EDT [facility] Attender: Adela Monge 10/27/2019 12:00:[address] [facility] ([facility]) Brief Individual Psychotherapy - 30 min Attender: Adela arreola [facility] 10/23/2019 09:15:00 AM EST - 10/23/2019 09:15:00 AM EST [facility] ([facility]) Medications Medication Brand Name Start [...] type / Coverage type Policy ID Covered alliance party ID Covered alliance party's relationship to duran Policy Duran Plan Information UN COMMUNITY PLAN MCDHMO [id number] SP [id number] [facility] COMMUNITY PLAN MCDHMO [id number] SP [id number] SELF PAY ONLY [id number] SP [id number] YURY RICEIFF DEPT [id number] SP [id number] Medicaid P [id number] S [id number] Managed Care [facility] Community Plan P [id number] S [id number] Medicaid S [id number] S [id number] Managed Care - Community Plan [facility] P [id number] S [id number] UN COMMUNITY PLAN MCDHMO [id number] SP [id number] [facility] COMMUNITY PLAN MCDHMO [id number] SP [id number] [facility] COMMUNITY PLAN MCDHMO [id number] SP [id number] Self Pay P [id number] S [id number] Self Pay P UNAVAILABLE S UNAVAILA BLE MEDICAID [id number] SP [id number] Medicaid P [id number] S [id number] Medicaid [place] [id number] Self [id number] MEDICAID M [id number] S [id number] Medicaid P [id number] S [id number] MEDICAID -PHYSICIAN [id number] MEDICAID - O/P EMERGENCY ROOM [id number] Medicaid P [id number] S [id number] MEDICAID [id number] Lisa [id number] [facility] [id number] SP [id number] Managed Care - Community Plan [facility] P [id number] S [id number] Managed Care - Community Plan [facility] P [id number] S [id number] Managed Care BCBS O [id number] S [id number] Medicaid S [id number] S [id number] Medicaid S UNAVAILABLE S UNAVAILA BLE EXCELLUS BCBS P [id number] C [id number] EXCELLUS BCBS P UNAVAILABLE C UNAV AILABLE [id number] Problems, Conditions, and Diagnoses Code Display Name Description Problem Type Effective Dates Data Source(s) F41.9 Anxiety disorder, unspecified Unspecified Anxiety Diso rder Condition 01/23/2020 12:00:00 AM EDT [facility] ([facility]) F11.20 Opioid dependence, uncomplicated Opioid Use Disorder, Severe Condition 01/23/2020 12:00:00 AM EDT [facility] ([facility]) Surgeries/Procedures Procedure Description Date Indications Data Source(s) Brief Individual Psychotherapy - 20 min 01/23/2020 12:00:00 AM EDT - 01/23/2020 12:00:00 AM EDT [facility] ([facility]) Brief Individual Psychotherapy - 20 min 01/22/2020 12: 00:00 AM EDT [facility] ([facility]) Brief Individual Psychotherapy - 30 min 10/27/2019 12:00:00 AM EST - 10/27/2019 12:00:00 AM EST [facility] ([facility]) Brief Individual Psychotherapy - 30 min 10/23/2019 12: 00:00 AM EST [facility] ([facility]) Results ID Date Data Source [id number] 10/28/2020 03:59:00 AM EST [facility] Name Value Range Interpretation Code Description Data Lauren rce(s) Supporting Document(s) SARS COVID ANTIGEN NEGATIVE [facility] This lab was ordered by SHASHA mcgraw nd reported by [facility]. ID Date Data Source [id number] 05/03/2020 11:16:16 AM EDT [facility] Measurements & CalculationsHeight: 71 inches [...] AMNurses Note pt was just released from long term 04/08 after being there for a year [...] examHistory of Present Illness (HPI)Has been in long term and snf for most of a year and did [...] taken off this when he went to snf. We discuss how this has become a [...] during this visit, including review of any xpod-lso-fbfuwwz medications, herbal therapies, and/or supplements.Allergy ReviewAllergy List [...] PoorAssessment & Plan Problems:Assessed:Opioid abuse, in remission (FQV73-D73.11) Assessment: Instructions: Has MAT intake today.Hyperlipidemia, unspecified (CHF36-U62.5) Assessment: Instructions: Check fasting blood tests soon.Migraine headache (ICD-346.90) (URW93-E98.909) Assessment: Instructions: On gabapentin for possible optic [...] once daily. MDD 1. APRIL F11.10 APRIL [id number]:PENICILLIN (Critical)Orders:COMP METABOLIC PANEL [CPT-45649] CBC W/DIFF [CPT-94970] LIPID PANEL [CPT-40599] TSH [CPT-92109] Hepatitis C Viral Load [CPT-53923] HCV Genotype [CPT-81424] HBsAg [CPT-98589] HEPATITIS B SURF ANTIBODY HBSAB [CPT-41356] Adult - Ofc Vst, EST, Level III [CPT-85943] Neurology Consult [CPT-58126] Medications:GABAPENTIN 100 MG ORAL CAPSULE (GABAPENTIN) One po qd for 7 days then one po bid. #60[Capsule] x 1 Route:ORAL Entered and Authorized by: Placido Cartagena MD Method used: Electronically to [facility] (retail) [address] [place] [address] Note to Pharmacy: Route: ORAL; RxID: [id number] signed by Placido Cartagena MD on 05/03/2020 at 11:52 AM Name Value Range Interpretation Code Description Data Lauren rce(s) Supporting Document(s) ID Date Data Source [id number] 03/05/2020 12:19:00 PM EDT [facility] Name: NOAH FLOREZ DIN: [id number] F acility: [facility] : 1985 Physician: Solitario Patiño MD Date of Service: 03/03/20 EXAM: CHEST The lungs, mediastinum and chest wall are unremarkable. cc: Dictation Date/Time: 03/05/20 1102 <Electronically signed by Jatinder Wheat MD> Transcribed Date/Time: 03/05/20 1219 03/05/20 1344 [employer]: MARIA C Name Value Range Interpretation Code Description Data Lauren rce(s) Supporting Document(s) ID Date Data Source [id number] 02/25/2020 08:40:00 AM EDT [facility] Name Value Range Interpretation Code Description Data Lauren rce(s) Supporting Document(s) SARS CORONAVIRUS 2 RNA [facility] This lab was ordered by [facility] and reported by [facility]. Procedure Social History Code Duration Value Status Description Data Source(s ) Smoking 01/23/2020 12:00:00 AM EDT Unknown if ever smoked comp leted Unknown if ever smoked [facility] ([facility]) Smoking 10/27/2019 12:00:00 AM EST Unknown if ever smoked comp leted Unknown if ever smoked [facility] ([facility])
[2020-10-31 15:40] LABS: BLOOD UREA NITROGEN 8 MG/DL (7-18); CALCIUM LEVEL 9.6 MG/DL (8.5-10.1); CARBON DIOXIDE LEVEL 32 MEQ/L (21-32); CHLORIDE LEVEL 104 MEQ/L (98-107); CREATININE FOR GFR 0.79 MG/DL (0.70-1.30); GLOMERULAR FILTRATION RATE > 60.0 (>60); GLUCOSE, FASTING 110 MG/DL (70-100); POTASSIUM SERUM 3.9 MEQ/L (3.5-5.1); SODIUM LEVEL 142 MEQ/L (136-145)
[2020-10-31 15:43] LABS: AMPHETAMINES LEVEL URINE NEGATIVE (NEGATIVE); BARBITURATES URINE NEGATIVE (NEGATIVE); BENZODIAZEPINES URINE NEGATIVE (NEGATIVE); CANNABINOIDS URINE POSITIVE (NEGATIVE); COCAINE METABOLITE URINE NEGATIVE (NEGATIVE); METHADONE URINE NEGATIVE (NEGATIVE); OPIATES URINE POSITIVE (NEGATIVE); PHENCYCLIDINE URINE NEGATIVE (NEGATIVE)
[2020-10-31 16:32] VITALS: BP 138/78
== END 2020-10-31 16:34 | disposition home or self-care (01) ==
LOC: M ED 13:45
DX: F19.10 Other psychoactive substance abuse, uncomplicated (principal); L98.1 Factitial dermatitis; F41.9 Anxiety disorder, unspecified; F32.9 Major depressive disorder, single episode, unspecified; Z88.0 Allergy status to penicillin

== ENCOUNTER 2020-11-21 20:42 | Emergency (ER) | payer OTHER ==
[~2020-11-21] VITALS: Ht 180.3 cm; Wt 74.0 kg
[2020-11-21] MEDS ORDERED: ASPIRIN 81 MG CHEW TABLET PO ONE (21:05)
[2020-11-21] MEDS ORDERED: NITROGLYCERIN 0.4 MG SUBL TABLET SL PRN (21:05)
[2020-11-21 21:43] LABS: BASO # 0.1 10^3/uL (0.0-0.2); BASO % 0.9 % (0.0-1.0); EOS # 0.1 10^3/uL (0.0-0.5); EOS % 1.5 % (0.0-3.0); HEMATOCRIT 41.5 % (42.0-52.0); HEMOGLOBIN 13.4 g/dl (13.5-17.5); LYMPH # 1.7 10^3/uL (1.5-5.0); LYMPH % 25.7 % (24.0-44.0); MEAN CORPUSCULAR HEMOGLOBIN 29.5 pg (27.0-33.0); MEAN CORPUSCULAR HGB CONC 32.3 g/dl (32.0-36.5); MEAN CORPUSCULAR VOLUME 91.4 fl (80.0-96.0); MONO # 0.7 10^3/uL (0.0-0.8); MONO % 9.7 % (2.0-8.0); NEUTROPHILS # 4.1 10^3/uL (1.5-8.5); NEUTROPHILS % 61.9 % (36.0-66.0); PLATELET COUNT, AUTOMATED 238 10^3/uL (150-450); RED BLOOD COUNT 4.54 10^6/uL (4.30-6.10); WHITE BLOOD COUNT 6.7 10^3/uL (4.0-10.0)
[2020-11-21 21:57] LABS: INR 1.03; PROTHROMBIN TIME 13.7 SECONDS (12.5-14.3)
[2020-11-21 21:58] LABS: PARTIAL THROMBOPLASTIN TIME 38.5 SECONDS (24.2-38.5)
[2020-11-21 22:00] LABS: D-DIMER QUANT 1034.17 ng/ml (<500)
[2020-11-21 22:11] VITALS: BP 107/56
[2020-11-21 22:17] LABS: ALBUMIN 3.8 GM/DL (3.2-5.2); ALT/SGPT 32 U/L (12-78); BILIRUBIN,DIRECT < 0.1 MG/DL (0.0-0.2); BILIRUBIN,TOTAL 0.2 MG/DL (0.2-1.0); BLOOD UREA NITROGEN 10 MG/DL (7-18); CARBON DIOXIDE LEVEL 29 MEQ/L (21-32); CHLORIDE LEVEL 104 MEQ/L (98-107); CK-MB VALUE MASS 2.4 NG/ML (<3.6); CPK CREATINE PHOSPHOKINASE 116 U/L (39-308); CREATININE FOR GFR 0.77 MG/DL (0.70-1.30); FREE T4 2.18 NG/DL (0.76-1.46); GLOMERULAR FILTRATION RATE > 60.0 (>60); GLUCOSE, FASTING 101 MG/DL (70-100); LIPASE 111 U/L (73-393); MB/CK RELATIVE INDEX 2.07 (< OR =4); NT-PRO BNP 37 PG/ML (<125); POTASSIUM SERUM 4.1 MEQ/L (3.5-5.1); SODIUM LEVEL 138 MEQ/L (136-145); TOTAL PROTEIN 8.1 GM/DL (6.4-8.2); TROPONIN I < 0.02 NG/ML (< 0.10)
--- NOTE | 2020-11-21 22:18 | REPVR ---
PROCEDURE INFORMATION: Exam: XR Chest Exam date and time: 11/21/2020 10:00 PM Age: 35 years old Clinical indication: Chest pain; Type not specified TECHNIQUE: Imaging protocol: XR of the chest Views: 1 view. COMPARISON: No relevant prior studies available. FINDINGS: Lungs: Unremarkable. No consolidation. Pleural spaces: Unremarkable. No pleural effusion. No pneumothorax. Heart/Mediastinum: Unremarkable. No cardiomegaly. Bones/joints: Unremarkable. IMPRESSION: Negative chest. Electronically signed by: José Salmon On 11/21/2020 22:18:34 PM
[2020-11-21 22:35] VITALS: O2SAT 97
[2020-11-21] MEDS ORDERED: ISOVUE-370 76% 100ML VIAL As Ordered ONE (23:49)
[2020-11-22] MEDS ORDERED: ISOVUE-370 76% 100ML VIAL As Ordered ONE (03:25)
[2020-11-22 03:52] LABS: CK-MB VALUE MASS 3.6 NG/ML (<3.6); CPK CREATINE PHOSPHOKINASE 466 U/L (39-308); MB/CK RELATIVE INDEX 0.77 (< OR =4); TROPONIN I < 0.02 NG/ML (< 0.10)
[2020-11-22 04:10] LABS: RSV AMPLIFICATION NEGATIVE (NEGATIVE)
--- NOTE | 2020-11-22 05:01 | REPVR ---
PROCEDURE INFORMATION: Exam: CT Angiography Chest With Contrast Exam date and time: 11/22/2020 4:32 AM Age: 35 years old Clinical indication: Chest pain; Additional info: Chest pain SOB TECHNIQUE: Imaging protocol: Computed tomographic angiography of the chest with contrast. 3D rendering (Not supervised by radiologist): MIP and/or 3D reconstructed images were created by the technologist. Radiation optimization: All CT scans at this facility use at least one of these dose optimization techniques: automated exposure control; mA and/or kV adjustment per patient size (includes targeted exams where dose is matched to clinical indication); or iterative reconstruction. Contrast material: ISO 370; Contrast volume: 75 ml; Contrast route: INTRAVENOUS (IV); COMPARISON: CR PORTABLE CHEST X-RAY 11/21/2020 9:48 PM FINDINGS: Pulmonary arteries: The main pulmonary artery measures 19 mm. No central pulmonary embolism is identified. Aorta: The ascending thoracic aorta measures 26 mm. Other arteries: The left vertebral artery originates directly from the arch. Lungs: Motion artifact in the lungs with some image degradation. No focal infiltrates. Pleural spaces: Unremarkable. No pneumothorax. No pleural effusion. Heart: Unremarkable. No cardiomegaly. No pericardial effusion. Lymph nodes: Unremarkable. No enlarged lymph nodes. Bones/joints: Unremarkable. No acute fracture. Soft tissues: Unremarkable. IMPRESSION: Essentially negative CTA chest. There is motion artifact in the lungs with some image degradation. No central pulmonary embolism is identified, however. Electronically signed by: José Salmon On 11/22/2020 05:02:00 AM
[2020-11-22] MEDS ORDERED: HYDR-3363 PO (05:47)
[2020-11-22] MEDS ORDERED: hydrOXYzine 25 MG TAB PO ONE (05:50)
[2020-11-22 06:15] VITALS: BP 120/68
--- NOTE | 2020-11-22 07:28 | ECGEPIP ---
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
--- NOTE | 2020-11-22 07:36 | ECGEPIP ---
[facility] - ED Test Date: 2020-11-22 Pat Name: NOAH FLOREZ Department: Room: - Gender: Male Critical Care Rn: YOVANI LATHAMB: 1985 Requested By: DAJA Ramos Order Number: [id number] Reading MD: James Reyes Measurements Intervals [place] Rate: 103 P: 74 CT: 112 QRS: 76 QRSD: 84 T: 58 QT: 332 QTc: 434 Interpretive Statements Sinus tachycardia SIMILAR TO 11/21/20 Electronically Signed on 11-22-2020 7:35:39 EST by James Reyes
== END 2020-11-22 06:22 | disposition home or self-care (01) ==
LOC: M ED 20:42
DX: F41.0 Panic disorder [episodic paroxysmal anxiety] (principal); I10 Essential (primary) hypertension; E78.5 Hyperlipidemia, unspecified; F33.9 Major depressive disorder, recurrent, unspecified; F43.10 Post-traumatic stress disorder, unspecified; F15.10 Other stimulant abuse, uncomplicated; Z88.0 Allergy status to penicillin; Z79.899 Other long term (current) drug therapy
CPT/HCPCS: 36415; 71045; 71275; 80048; 80076; 82550; 82553; 83690; 83880; 84439; 84443; 85025; 85379; 85610; 85730; 87631; 87804; 93005; 93041; 94760; 99285; Q9967

== ENCOUNTER 2024-03-27 15:46 | Emergency (ER) | payer OTHER, SELFPAY ==
[~2024-03-27] VITALS: Ht 180.3 cm; Wt 79.8 kg
[~2024-03-27 15:46] MED LIST changes: +BUPR-597 PO; +BUPR-71 PO; -BUPR150T5 PO; -BUPR300T92 PO; -DOXY-350 PO; +DOXY-440 PO; +HYDR-3363 PO; -MIRT-62 PO; +MIRT-88 PO
[2024-03-27 15:48] VITALS: TEMP 98.8
[2024-03-27 16:48] LABS: RSV AMPLIFICATION NEGATIVE (NEGATIVE)
[2024-03-27 18:12] VITALS: BP 128/77; O2SAT 99
[2024-03-27 19:27] LABS: ALKALINE PHOSPHATASE 56 U/L (46-116); ALT/SGPT 89 U/L (7.0-40); AST/SGOT 69 U/L (<34); BILIRUBIN,DIRECT 0.4 MG/DL (<0.4); BILIRUBIN,TOTAL 0.7 MG/DL (0.3-1.2); BLOOD UREA NITROGEN 10 MG/DL (9-23); CARBON DIOXIDE LEVEL 27 MMOL/L (20-31); CHLORIDE LEVEL 101 MMOL/L (98-107); CK-MB VALUE MASS 4.3 NG/ML (<3.6); CPK CREATINE PHOSPHOKINASE 208 U/L (46-171); CREATININE FOR GFR 0.58 MG/DL (0.70-1.30); GLOMERULAR FILTRATION RATE > 60.0 (>60); GLUCOSE, FASTING 86 MG/DL (60-100); MB/CK RELATIVE INDEX 2.06 (< OR =4); POTASSIUM SERUM 3.6 MMOL/L (3.5-5.1); SODIUM LEVEL 137 MMOL/L (136-145); THYROXINE (T4) 12.5 UG/DL (4.5-10.9); TOTAL PROTEIN 8.3 G/DL (5.7-8.2)
[2024-03-27] MEDS ORDERED: ISOVUE-370 76% 100ML VIAL As Ordered ONE (19:33)
[2024-03-27 19:45] LABS: BASO # 0.1 10^3/uL (0.0-0.2); BASO % 0.4 % (0.0-1.0); EOS # 0.1 10^3/uL (0.0-0.5); EOS % 0.5 % (0.0-3.0); HEMOGLOBIN 14.3 g/dl (13.5-17.5); LYMPH # 1.5 10^3/uL (1.5-5.0); LYMPH % 13.1 % (24.0-44.0); MEAN CORPUSCULAR HEMOGLOBIN 30.7 pg (27.0-33.0); MEAN CORPUSCULAR VOLUME 90.1 fl (80.0-96.0); MONO # 1.3 10^3/uL (0.0-0.8); MONO % 10.9 % (2.0-8.0); NEUTROPHILS # 8.7 10^3/uL (1.5-8.5); NEUTROPHILS % 74.5 % (36.0-66.0); PLATELET COUNT, AUTOMATED 256 10^3/uL (150-450); RED BLOOD COUNT 4.66 10^6/uL (4.30-6.10); WHITE BLOOD COUNT 11.7 10^3/uL (4.0-10.0)
[2024-03-27] MEDS ORDERED: ACET325C5 PO (20:14)
[2024-03-27] MEDS ORDERED: BACI500O8 TOP (20:14)
== END 2024-03-27 20:29 | disposition left against medical advice (07) ==
LOC: EEVIPCON 15:46 → M ED 15:46
DX: R50.9 Fever, unspecified (principal); R07.9 Chest pain, unspecified; W57.XXXA Bitten or stung by nonvenomous insect and other nonvenomous arthropods, initial encounter; F43.10 Post-traumatic stress disorder, unspecified; F19.10 Other psychoactive substance abuse, uncomplicated; I10 Essential (primary) hypertension; Z88.0 Allergy status to penicillin; Z87.820 Personal history of traumatic brain injury; Z79.1 Long term (current) use of non-steroidal anti-inflammatories (NSAID); Z79.2 Long term (current) use of antibiotics; Z53.9 Procedure and treatment not carried out, unspecified reason
CPT/HCPCS: 36415; 71046; 80048; 80076; 82550; 82553; 83605; 84436; 84443; 84484; 85025; 87040; 87077; 87186; 87486; 87581; 87631; 87633; 87798; 93005; 93971; 99284; Q9967